=== PATIENT | female | born 1990 | race Caucasian/White ===

== ENCOUNTER → 2019-11-04 10:59 | Outpatient (BNVA) | payer MEDICAID, SELFPAY | PROVIDERS: Family Provider Family Medicine; PCP Family Medicine; Visit Provider Family Medicine | DX: Z34.91 Encounter for supervision of normal pregnancy, unspecified, first trimester (principal); F41.1 Generalized anxiety disorder; F32.9 Major depressive disorder, single episode, unspecified; H10.33 Unspecified acute conjunctivitis, bilateral | CPT/HCPCS: 81025 ==

== ENCOUNTER 2020-01-21 12:03 | Inpatient (IN) | payer MEDICAID, SELFPAY ==
[2020-01-21 12:04] VITALS: BP 129/85; PULSE 60; RESP 18; TEMP 36.8; O2SAT 100; BMI 31.7
--- NOTE | 2020-01-21 12:29 | PC.NURSE ---
Pt in paper scrubs, with sitter at doorway. Room devoid of all objects. Pt is calm and conversive.
[2020-01-21 12:31] LABS: Basophils # 0.1 10^3/uL (0.0-0.1); Basophils % 0.6 %; Eosinophils # 0.2 10^3/uL (0.0-0.8); Eosinophils % 2.7 %; Hematocrit 41.4 % (37.0-47.0); Hemoglobin 12.7 g/dL (11.5-15.3); Lymphocytes # 1.7 10^3/uL (0.8-4.8); Lymphocytes % 19.6 %; Mean Corpuscular HGB Conc 30.7 g/dL (30.0-36.0); Mean Corpuscular Hemoglobin 26.1 pg (28.0-34.0); Mean Corpuscular Volume 85.2 fL (81-99); Mean Platelet Volume 9.7 fL (7.4-10.4); Monocytes # 0.6 10^3/uL (0.2-0.9); Monocytes % 6.6 %; Neutrophils # 6.2 10^3/uL (1.8-7.7); Nucleated Red Blood Cells % 0 %; Platelet Count 387 10^3/cmm (130-400); Red Blood Count 4.86 10^6/uL (4.1-5.3); Red Cell Distribution Width 13.6 % (12.1-15.1); White Blood Count 8.8 10^3/uL (4.0-10.0)
--- NOTE | 2020-01-21 12:40 | W.ED.PSYCH ---
HPI - Psych General: Chief Complaint: Psychiatric Symptoms Stated Complaint: SI HALLUCINATIONS Time Seen by Provider: 01/21/20 12:05 Source: patient Mode of arrival: EMS Limitations: no limitations History of Present Illness: HPI Narrative: Patient is a 29-year-old female who presents to ED today from the [facility] along with a psychiatric affidavit for complaints of wanting to harm herself by banging her head on a wall as well as thoughts of wanting to harm her child. When asked if she feels like she may harm her 11 month old infant if released from the hospital, she responds yes . Reports auditory hallucinations of hearing voices telling her she's not good enough, she's not a good mother, she doens't deserve her son, etc. Associated symptoms: Reports auditory hallucinations, depression and homicidal ideation; Deny visual hallucinations or suicidal ideation Review of Systems Const: Denies: fever or chills Card: Denies: chest pain, palpitations, lightheadedness or syncope Resp: Denies: shortness of breath GI: Denies: abdominal pain, nausea, vomiting or diarrhea Skin/Breast: Denies: rash Neuro: Denies: headache Psych: Reports: anxiety, depression, auditory hallucinations and homicidal ideation; Denies: visual hallucinations or suicidal ideation [facility] ED PFSH: Social History Smoking and tobacco status: former smoker Quit status (tobacco): has quit using tobacco Year quit tobacco: 2019 Former quit date comment: 10/30/2019 Second hand smoke exposure: Yes Smoking risk assessment/counseling performed?: No Alcohol intake: never Desire information about alcohol rehabilitation?: No Counseling given: No Desire information about substance/drug rehabilitation?: No Counseling given: No Lives independently: No Household members: spouse and family Housing: House Marital status: Number of children: 1 service: No Current gender identity: Female Female Reproductive History: Date of last menstrual period: 01/21/20 Physical Exam Const: COMMON NORMALS: no apparent distress, average body habitus, oriented x3, no limitations, healthy appearing, alert and well nourished Resp: COMMON NORMALS: normal respiratory effort and clear to auscultation bilaterally AUSCULTATION: clear to auscultation bilaterally Cardio: COMMON NORMALS: regular rate and regular rhythm RATE: regular rate RHYTHM: regular rhythm Extremity: COMMON NORMALS: normal to inspection Neuro: COMMON NORMALS: oriented x3 SENSORIUM/ORIENTATION: Yes alert Skin: COMMON NORMALS: no rashes or lesions noted GENERAL SKIN EXAM: no rashes or lesions noted MDM - Psych MDM Narrative: Medical decision making narrative: Patient came for [facility] with an affidavit on her chart. I spoke to Dr. Schafer the psychiatrist on-call who agrees patient needs to be admitted however we do not have NPU beds currently. We can either board her in our ED until one becomes available or transfer her. On patient's blood work her test did come back positive. Patient tells me about a month ago she was told she was and thinks she was approximately 5 to 6 weeks because she had an ultrasound through her [facility] in [place] and was told it was too early to know if it was a viable . She stated shortly after she began bleeding much heavier than a normal menstrual cycle and believes she miscarried. Patient had not had any further bleeding until yesterday when she began spotting again. Her hCG today is 36. She is not having any abdominal pain or cramping. She will need to have this rechecked through her [facility]-states she actually had an appointment with them tomorrow but she will need to reschedule after she is discharged from a psychiatric unit. Lab Data: Labs: Lab Results 01/21/20 01/21/20 01/21/20 Range/Units 12:05 12:07 12:23 WBC 8.8 (4.0-10.0) 10^3/ uL RBC 4.86 (4.1-5.3) 10^6/u L Hgb 12.7 (11.5-15.3) g/dL Hct 41.4 (37.0-47.0) % MCV 85.2 (81-99) fL MCH 26.1 L (28.0-34.0) pg MCHC 30.7 (30.0-36.0) g/dL RDW 13.6 (12.1-15.1) % Plt Count 387 (130-400) 10^3/c mm MPV 9.7 (7.4-10.4) fL Neut % (Auto) 70.0 % Lymph % (Auto) 19.6 % [place] % (Auto) 6.6 % Eos % (Auto) 2.7 % Baso % (Auto) 0.6 % Neut # (Auto) 6.2 (1.8-7.7) 10^3/u L Lymph # (Auto) 1.7 (0.8-4.8) 10^3/u L [place] # (Auto) 0.6 (0.2-0.9) 10^3/u L Eos # (Auto) 0.2 (0.0-0.8) 10^3/u L Baso # (Auto) 0.1 (0.0-0.1) 10^3/u L Nucleated RBC % (a uto) 0 % Nucleated RBCs # 0.0 /100WBC Sodium (136-145) mmol/L Potassium (3.5-5.1) mmol/L Chloride (98-107) mmol/L Carbon Dioxide (22-29) mmol/L Anion Gap (5-19) BUN (6-20) mg/dL Creatinine (0.5-0.9) mg/dL GFR Calculation (90-130) mL/min Glucose (65-115) mg/dL Calculated Osmolal ity (285-295) mOsm/k g Calcium (8.5-10.5) mg/dL Total Bilirubin (0.15-1.2) mg/dL AST (0-32) U/L ALT (0-33) U/L Alkaline Phosphata se (35-105) IU/L Total Protein (6.6-8.7) g/dL Albumin (3.5-5.2) g/dL Globulin (1.3-4.6) g/dL TSH (0.27-4.20) uIU/ mL HCG, Qual (Negative) Ser , Kranthi i-Qnt mIU/mL Urine Color Yellow (Yellow) Urine Appearance Sl hazy (CLEAR) Urine pH 6 (5-7) Ur Specific Gravit y 1.010 (1.005-1.030) Urine Protein Neg (Negative) Urine Glucose (UA) Norm (Normal) Urine Ketones Negative (Negative) Urine Blood 3+ H (Negative) Urine Nitrate Negative (Negative) Urine Bilirubin Neg (NEGATIVE) Urine Urobilinogen Norm (Negative) mg/dL Ur Leukocyte Suzette ase Negative (Negative) Urine RBC 0-4 H (0-2) /hpf Urine WBC None (0-5) /hpf Ur Squamous Epith Cells 5-10 H (0-5) Urine Bacteria 1+ H (NONE) Salicylates (3-10) mg/dL Urine Opiates Scre en Negative (Negative) ng/mL Acetaminophen (10-30) ug/mL Ur Barbiturates Sc reen Negative (Negative) ng/mL Ur Phencyclidine S crn Negative (Negative) ng/mL Ur Amphetamines Sc reen Negative (Negative) ng/mL U Benzodiazepines Scrn Negative (Negative) ng/mL Urine Cocaine Scre en Negative (Negative) ng/mL U Marijuana (THC) Screen Negative (Negative) ng/mL Ethyl Alcohol (0-10) mg/dL Blood Type Rho(D) Type 01/21/20 01/21/20 01/21/20 Range/Units 12:23 12:23 12:23 WBC (4.0-10.0) 10^3/ uL RBC (4.1-5.3) 10^6/u L Hgb (11.5-15.3) g/dL Hct (37.0-47.0) % MCV (81-99) fL MCH (28.0-34.0) pg MCHC (30.0-36.0) g/dL RDW (12.1-15.1) % Plt Count (130-400) 10^3/c mm MPV (7.4-10.4) fL Neut % (Auto) % Lymph % (Auto) % [place] % (Auto) % Eos % (Auto) % Baso % (Auto) % Neut # (Auto) (1.8-7.7) 10^3/u L Lymph # (Auto) (0.8-4.8) 10^3/u L [place] # (Auto) (0.2-0.9) 10^3/u L Eos # (Auto) (0.0-0.8) 10^3/u L Baso # (Auto) (0.0-0.1) 10^3/u L Nucleated RBC % (a uto) % Nucleated RBCs # /100WBC Sodium 140 (136-145) mmol/L Potassium 4.7 (3.5-5.1) mmol/L Chloride 104 (98-107) mmol/L Carbon Dioxide 26 (22-29) mmol/L Anion Gap 14.7 (5-19) BUN 10 (6-20) mg/dL Creatinine 0.6 (0.5-0.9) mg/dL GFR Calculation 116.6 (90-130) mL/min Glucose 84 (65-115) mg/dL Calculated Osmolal ity 285 (285-295) mOsm/k g Calcium 10.0 (8.5-10.5) mg/dL Total Bilirubin 0.2 (0.15-1.2) mg/dL AST 18 (0-32) U/L ALT 19 (0-33) U/L Alkaline Phosphata se 95 (35-105) IU/L Total Protein 7.2 (6.6-8.7) g/dL Albumin 4.2 (3.5-5.2) g/dL Globulin 3.0 (1.3-4.6) g/dL TSH (0.27-4.20) uIU/ mL HCG, Qual Positive H (Negative) Ser , Kranthi i-Qnt 36.30 mIU/mL Urine Color (Yellow) Urine Appearance (CLEAR) Urine pH (5-7) Ur Specific Gravit y (1.005-1.030) Urine Protein (Negative) Urine Glucose (UA) (Normal) Urine Ketones (Negative) Urine Blood (Negative) Urine Nitrate (Negative) Urine Bilirubin (NEGATIVE) Urine Urobilinogen (Negative) mg/dL Ur Leukocyte Suzette ase (Negative) Urine RBC (0-2) /hpf Urine WBC (0-5) /hpf Ur Squamous Epith Cells (0-5) Urine Bacteria (NONE) Salicylates 0.6 L (3-10) mg/dL Urine Opiates Scre en (Negative) ng/mL Acetaminophen < 5.0 L (10-30) ug/mL Ur Barbiturates Sc reen (Negative) ng/mL Ur Phencyclidine S crn (Negative) ng/mL Ur Amphetamines Sc reen (Negative) ng/mL U Benzodiazepines Scrn (Negative) ng/mL Urine Cocaine Scre en (Negative) ng/mL U Marijuana (THC) Screen (Negative) ng/mL Ethyl Alcohol < 10 (0-10) mg/dL Blood Type Rho(D) Type 01/21/20 01/21/20 Range/Units 12:23 13:07 WBC (4.0-10.0) 10^3/ uL RBC (4.1-5.3) 10^6/u L Hgb (11.5-15.3) g/dL Hct (37.0-47.0) % MCV (81-99) fL MCH (28.0-34.0) pg MCHC (30.0-36.0) g/dL RDW (12.1-15.1) % Plt Count (130-400) 10^3/c mm MPV (7.4-10.4) fL Neut % (Auto) % Lymph % (Auto) % [place] % (Auto) % Eos % (Auto) % Baso % (Auto) % Neut # (Auto) (1.8-7.7) 10^3/u L Lymph # (Auto) (0.8-4.8) 10^3/u L [place] # (Auto) (0.2-0.9) 10^3/u L Eos # (Auto) (0.0-0.8) 10^3/u L Baso # (Auto) (0.0-0.1) 10^3/u L Nucleated RBC % (a uto) % Nucleated RBCs # /100WBC Sodium (136-145) mmol/L Potassium (3.5-5.1) mmol/L Chloride (98-107) mmol/L Carbon Dioxide (22-29) mmol/L Anion Gap (5-19) BUN (6-20) mg/dL Creatinine (0.5-0.9) mg/dL GFR Calculation (90-130) mL/min Glucose (65-115) mg/dL Calculated Osmolal ity (285-295) mOsm/k g Calcium (8.5-10.5) mg/dL Total Bilirubin (0.15-1.2) mg/dL AST (0-32) U/L ALT (0-33) U/L Alkaline Phosphata se (35-105) IU/L Total Protein (6.6-8.7) g/dL Albumin (3.5-5.2) g/dL Globulin (1.3-4.6) g/dL TSH 2.41 (0.27-4.20) uIU/ mL HCG, Qual (Negative) Ser , Kranthi i-Qnt mIU/mL Urine Color (Yellow) Urine Appearance (CLEAR) Urine pH (5-7) Ur Specific Gravit y (1.005-1.030) Urine Protein (Negative) Urine Glucose (UA) (Normal) Urine Ketones (Negative) Urine Blood (Negative) Urine Nitrate (Negative) Urine Bilirubin (NEGATIVE) Urine Urobilinogen (Negative) mg/dL Ur Leukocyte Suzette ase (Negative) Urine RBC (0-2) /hpf Urine WBC (0-5) /hpf Ur Squamous Epith Cells (0-5) Urine Bacteria (NONE) Salicylates (3-10) mg/dL Urine Opiates Scre en (Negative) ng/mL Acetaminophen (10-30) ug/mL Ur Barbiturates Sc reen (Negative) ng/mL Ur Phencyclidine S crn (Negative) ng/mL Ur Amphetamines Sc reen (Negative) ng/mL U Benzodiazepines Scrn (Negative) ng/mL Urine Cocaine Scre en (Negative) ng/mL U Marijuana (THC) Screen (Negative) ng/mL Ethyl Alcohol (0-10) mg/dL Blood Type O Positive Rho(D) Type Positive Discharge Plan Discharge Patient Disposition: Psych Hosp/Unit w Plan Readm Admit Provider: Rakan Cloud Clinical Impression: Homicidal thoughts, Suicidal ideation Depression Qualifiers: Depression Type: major depressive disorder Major depression recurrence: recurrent Active/Remission status: currently active Major depression episode severity: moderate Qualified Code(s): F33.1 - Major depressive disorder, recurrent, moderate Condition: Stable Discharge Date/Time: 01/21/20 23:32 Coding Level of Care Code ED Construction Economist for Rony Fwd Exam Detailed
[2020-01-21 12:44] LABS: Amphetamines Screen Urine Negative (Negative); Barbiturates Screen Urine Negative (Negative); Benzodiazepines Screen Urine Negative (Negative); Cocaine Screen Urine Negative (Negative); Opiate Screen Urine Negative (Negative); PCP Screen Urine Negative (Negative); THC Screen Urine Negative (Negative)
[2020-01-21 12:46] LABS: HCG, Serum Qual Positive (Negative)
[2020-01-21 12:49] LABS: Acetaminophen < 5.0 ug/mL (10-30); Alanine Aminotransferase 19 U/L (0-33); Albumin Level 4.2 g/dL (3.5-5.2); Alcohol Level < 10 mg/dL (0-10); Alkaline Phosphatase 95 IU/L (35-105); Anion Gap 14.7 (5-19); Aspartate Amino Transferase 18 U/L (0-32); Blood Urea Nitrogen 10 mg/dL (6-20); Carbon Dioxide 26 mmol/L (22-29); Chloride 104 mmol/L (98-107); Glomerular Filtration Rate 116.6 mL/min (90-130); Glucose 84 mg/dL (65-115); Osmolality Calculated 285 mOsm/kg (285-295); Potassium 4.7 mmol/L (3.5-5.1); Salicylate 0.6 mg/dL (3-10); Sodium 140 mmol/L (136-145); Total Bilirubin 0.2 mg/dL (0.15-1.2); Total Protein 7.2 g/dL (6.6-8.7)
--- NOTE | 2020-01-21 13:12 | PC.NURSE ---
Pt requesting food. Bag lunch taken to pt.
[2020-01-21] MEDS: acetaminophen 325 mg Tablet 650 MG PO (13:38)
--- NOTE | 2020-01-21 15:27 | ECG_ITS ---
Measurements Intervals [place] Rate: 62 P: 38 [place]: 120 QRS: 48 QRSD: 132 T: 53 QT: 436 QTc: 446 SINUS RHYTHM WITH SINUS ARRHYTHMIA INTRAVENTRICULAR CONDUCTION DELAY [130+ ms QRS DURATION] No previous ECG available for comparison Electronically Signed On 01-21-2020 18:22:14 CDT by Reymundo Torres M.D. [email or web address]
[2020-01-21 15:53] LABS: Thyroid Stimulating Hormone 2.41 uIU/mL (0.27-4.20)
[2020-01-21 16:49] VITALS: BP 112/64; PULSE 68; RESP 16; TEMP 36.8; O2SAT 99
--- NOTE | 2020-01-21 17:05 | W.ED.PSYCH ---
HPI - Psych General: Chief Complaint: Psychiatric Symptoms Stated Complaint: SI HALLUCINATIONS Time Seen by Provider: 01/21/20 12:05 Source: patient Mode of arrival: EMS History of Present Illness: Associated symptoms: Reports homicidal ideation and suicidal ideation Review of Systems General: Reports: 10 or more systems reviewed and unremarkable except in HPI and below Psych: Reports: suicidal ideation and homicidal ideation PFS ED PFSH: Social History Smoking and tobacco status: former smoker Quit status (tobacco): has quit using tobacco Year quit tobacco: 2019 Former quit date comment: 10/30/2019 Second hand smoke exposure: Yes Smoking risk assessment/counseling performed?: No Alcohol intake: never Desire information about alcohol rehabilitation?: No Counseling given: No Desire information about substance/drug rehabilitation?: No Counseling given: No Lives independently: No Household members: spouse and family Housing: House Marital status: Number of children: 1 service: No Current gender identity: Female Female Reproductive History: Date of last menstrual period: 01/21/20 Physical Exam Const: COMMON NORMALS: no apparent distress and oriented x3 GENERAL APPEARANCE: cooperative HENMT: COMMON NORMALS: normocephalic, external ears normal, EAC's normal, TM's normal bilaterally and external nose normal HEAD & SCALP: normal to inspection and normocephalic FACE & SINUS: normal facial exam NOSE: external nose normal GENERAL EAR: hearing not grossly impaired EXTERNAL EAR: Yes external ears normal EXTERNAL AUDITORY CANAL: EAC's normal TYMPANIC MEMBRANE: TM's normal bilaterally MOUTH: oral and palatal mucosa normal THROAT: posterior oropharynx normal Eye: COMMON NORMALS: PERRL and EOMs intact bilaterally PUPIL: Yes PERRL Neck/C-Spine: COMMON NORMALS: full ROM and no lymphadenopathy Lymph: LYMPHATIC: no lymphedema noted Chest: COMMONS NORMALS: inspection of chest normal and palpation of chest normal Resp: COMMON NORMALS: normal respiratory effort and clear to auscultation bilaterally AUSCULTATION: clear to auscultation bilaterally Cardio: COMMON NORMALS: regular rate and regular rhythm RATE: regular rate RHYTHM: regular rhythm GI: COMMON NORMALS: normal to inspection, nondistended, normoactive bowel sounds and non-tender : COMMON NORMALS: Yes no CVA tenderness BLADDER/KIDNEY EXAM: Yes no CVA tenderness Back/Pelvis: COMMON NORMALS: no CVA tenderness and thoracic and lumbar spine normal to inspection Extremity: COMMON NORMALS: normal to inspection GENERAL: No edema Neuro: COMMON NORMALS: oriented x3, moves all extremities and no focal motor deficits Psych: COMMON NORMALS: mental status grossly normal and cooperative Skin: COMMON NORMALS: no rashes or lesions noted GENERAL SKIN EXAM: no rashes or lesions noted MDM - Psych MDM Narrative: Medical decision making narrative: Patient comes in today for complaints of suicidal ideation and homicidal thoughts. Patient has been having some difficulty and made a statement that she would harm her child if she was to be sent back home. Differential diagnosis is major depressive disorder, psychosis, schizotypal disorder, schizophrenia. Laboratory values were insignificant. Patient did have a positive hCG test and a hCG level of 36. Ultrasound noted some endometrial thickening that could have been suggested as a retained product from a miscarriage or a molar type . Patient is aware of this abnormality and is presently seeing an VP [facility]ETIC and was supposed to see the VP GENETIC tomorrow. Due to concerns for the safety of patient self and her child she needs admission into the neuropsychiatric unit for further evaluation and treatment. Dr. Cloud has agreed to admission to neuropsychiatric unit. Consult for [facility] consult will be placed in the orders. Dr. Cloud was agreeable for this plan. Lab Data: Labs: Lab Results 01/21/20 01/21/20 01/21/20 Range/Units 12:05 12:07 12:23 WBC 8.8 (4.0-10.0) 10^3/ uL RBC 4.86 (4.1-5.3) 10^6/u L Hgb 12.7 (11.5-15.3) g/dL Hct 41.4 (37.0-47.0) % MCV 85.2 (81-99) fL MCH 26.1 L (28.0-34.0) pg MCHC 30.7 (30.0-36.0) g/dL RDW 13.6 (12.1-15.1) % Plt Count 387 (130-400) 10^3/c mm MPV 9.7 (7.4-10.4) fL Neut % (Auto) 70.0 % Lymph % (Auto) 19.6 % [place] % (Auto) 6.6 % Eos % (Auto) 2.7 % Baso % (Auto) 0.6 % Neut # (Auto) 6.2 (1.8-7.7) 10^3/u L Lymph # (Auto) 1.7 (0.8-4.8) 10^3/u L [place] # (Auto) 0.6 (0.2-0.9) 10^3/u L Eos # (Auto) 0.2 (0.0-0.8) 10^3/u L Baso # (Auto) 0.1 (0.0-0.1) 10^3/u L Nucleated RBC % (a uto) 0 % Nucleated RBCs # 0.0 /100WBC Sodium (136-145) mmol/L Potassium (3.5-5.1) mmol/L Chloride (98-107) mmol/L Carbon Dioxide (22-29) mmol/L Anion Gap (5-19) BUN (6-20) mg/dL Creatinine (0.5-0.9) mg/dL GFR Calculation (90-130) mL/min Glucose (65-115) mg/dL Calculated Osmolal ity (285-295) mOsm/k g Calcium (8.5-10.5) mg/dL Total Bilirubin (0.15-1.2) mg/dL AST (0-32) U/L ALT (0-33) U/L Alkaline Phosphata se (35-105) IU/L Total Protein (6.6-8.7) g/dL Albumin (3.5-5.2) g/dL Globulin (1.3-4.6) g/dL TSH (0.27-4.20) uIU/ mL HCG, Qual (Negative) Ser , Kranthi i-Qnt mIU/mL Urine Color Yellow (Yellow) Urine Appearance Sl hazy (CLEAR) Urine pH 6 (5-7) Ur Specific Gravit y 1.010 (1.005-1.030) Urine Protein Neg (Negative) Urine Glucose (UA) Norm (Normal) Urine Ketones Negative (Negative) Urine Blood 3+ H (Negative) Urine Nitrate Negative (Negative) Urine Bilirubin Neg (NEGATIVE) Urine Urobilinogen Norm (Negative) mg/dL Ur Leukocyte Suzette ase Negative (Negative) Urine RBC 0-4 H (0-2) /hpf Urine WBC None (0-5) /hpf Ur Squamous Epith Cells 5-10 H (0-5) Urine Bacteria 1+ H (NONE) Salicylates (3-10) mg/dL Urine Opiates Scre en Negative (Negative) ng/mL Acetaminophen (10-30) ug/mL Ur Barbiturates Sc reen Negative (Negative) ng/mL Ur Phencyclidine S crn Negative (Negative) ng/mL Ur Amphetamines Sc reen Negative (Negative) ng/mL U Benzodiazepines Scrn Negative (Negative) ng/mL Urine Cocaine Scre en Negative (Negative) ng/mL U Marijuana (THC) Screen Negative (Negative) ng/mL Ethyl Alcohol (0-10) mg/dL Blood Type Rho(D) Type 01/21/20 01/21/20 01/21/20 Range/Units 12:23 12:23 12:23 WBC (4.0-10.0) 10^3/ uL RBC (4.1-5.3) 10^6/u L Hgb (11.5-15.3) g/dL Hct (37.0-47.0) % MCV (81-99) fL MCH (28.0-34.0) pg MCHC (30.0-36.0) g/dL RDW (12.1-15.1) % Plt Count (130-400) 10^3/c mm MPV (7.4-10.4) fL Neut % (Auto) % Lymph % (Auto) % [place] % (Auto) % Eos % (Auto) % Baso % (Auto) % Neut # (Auto) (1.8-7.7) 10^3/u L Lymph # (Auto) (0.8-4.8) 10^3/u L [place] # (Auto) (0.2-0.9) 10^3/u L Eos # (Auto) (0.0-0.8) 10^3/u L Baso # (Auto) (0.0-0.1) 10^3/u L Nucleated RBC % (a uto) % Nucleated RBCs # /100WBC Sodium 140 (136-145) mmol/L Potassium 4.7 (3.5-5.1) mmol/L Chloride 104 (98-107) mmol/L Carbon Dioxide 26 (22-29) mmol/L Anion Gap 14.7 (5-19) BUN 10 (6-20) mg/dL Creatinine 0.6 (0.5-0.9) mg/dL GFR Calculation 116.6 (90-130) mL/min Glucose 84 (65-115) mg/dL Calculated Osmolal ity 285 (285-295) mOsm/k g Calcium 10.0 (8.5-10.5) mg/dL Total Bilirubin 0.2 (0.15-1.2) mg/dL AST 18 (0-32) U/L ALT 19 (0-33) U/L Alkaline Phosphata se 95 (35-105) IU/L Total Protein 7.2 (6.6-8.7) g/dL Albumin 4.2 (3.5-5.2) g/dL Globulin 3.0 (1.3-4.6) g/dL TSH (0.27-4.20) uIU/ mL HCG, Qual Positive H (Negative) Ser , Kranthi i-Qnt 36.30 mIU/mL Urine Color (Yellow) Urine Appearance (CLEAR) Urine pH (5-7) Ur Specific Gravit y (1.005-1.030) Urine Protein (Negative) Urine Glucose (UA) (Normal) Urine Ketones (Negative) Urine Blood (Negative) Urine Nitrate (Negative) Urine Bilirubin (NEGATIVE) Urine Urobilinogen (Negative) mg/dL Ur Leukocyte Suzette ase (Negative) Urine RBC (0-2) /hpf Urine WBC (0-5) /hpf Ur Squamous Epith Cells (0-5) Urine Bacteria (NONE) Salicylates 0.6 L (3-10) mg/dL Urine Opiates Scre en (Negative) ng/mL Acetaminophen < 5.0 L (10-30) ug/mL Ur Barbiturates Sc reen (Negative) ng/mL Ur Phencyclidine S crn (Negative) ng/mL Ur Amphetamines Sc reen (Negative) ng/mL U Benzodiazepines Scrn (Negative) ng/mL Urine Cocaine Scre en (Negative) ng/mL U Marijuana (THC) Screen (Negative) ng/mL Ethyl Alcohol < 10 (0-10) mg/dL Blood Type Rho(D) Type 01/21/20 01/21/20 Range/Units 12:23 13:07 WBC (4.0-10.0) 10^3/ uL RBC (4.1-5.3) 10^6/u L Hgb (11.5-15.3) g/dL Hct (37.0-47.0) % MCV (81-99) fL MCH (28.0-34.0) pg MCHC (30.0-36.0) g/dL RDW (12.1-15.1) % Plt Count (130-400) 10^3/c mm MPV (7.4-10.4) fL Neut % (Auto) % Lymph % (Auto) % [place] % (Auto) % Eos % (Auto) % Baso % (Auto) % Neut # (Auto) (1.8-7.7) 10^3/u L Lymph # (Auto) (0.8-4.8) 10^3/u L [place] # (Auto) (0.2-0.9) 10^3/u L Eos # (Auto) (0.0-0.8) 10^3/u L Baso # (Auto) (0.0-0.1) 10^3/u L Nucleated RBC % (a uto) % Nucleated RBCs # /100WBC Sodium (136-145) mmol/L Potassium (3.5-5.1) mmol/L Chloride (98-107) mmol/L Carbon Dioxide (22-29) mmol/L Anion Gap (5-19) BUN (6-20) mg/dL Creatinine (0.5-0.9) mg/dL GFR Calculation (90-130) mL/min Glucose (65-115) mg/dL Calculated Osmolal ity (285-295) mOsm/k g Calcium (8.5-10.5) mg/dL Total Bilirubin (0.15-1.2) mg/dL AST (0-32) U/L ALT (0-33) U/L Alkaline Phosphata se (35-105) IU/L Total Protein (6.6-8.7) g/dL Albumin (3.5-5.2) g/dL Globulin (1.3-4.6) g/dL TSH 2.41 (0.27-4.20) uIU/ mL HCG, Qual (Negative) Ser , Kranthi i-Qnt mIU/mL Urine Color (Yellow) Urine Appearance (CLEAR) Urine pH (5-7) Ur Specific Gravit y (1.005-1.030) Urine Protein (Negative) Urine Glucose (UA) (Normal) Urine Ketones (Negative) Urine Blood (Negative) Urine Nitrate (Negative) Urine Bilirubin (NEGATIVE) Urine Urobilinogen (Negative) mg/dL Ur Leukocyte Suzette ase (Negative) Urine RBC (0-2) /hpf Urine WBC (0-5) /hpf Ur Squamous Epith Cells (0-5) Urine Bacteria (NONE) Salicylates (3-10) mg/dL Urine Opiates Scre en (Negative) ng/mL Acetaminophen (10-30) ug/mL Ur Barbiturates Sc reen (Negative) ng/mL Ur Phencyclidine S crn (Negative) ng/mL Ur Amphetamines Sc reen (Negative) ng/mL U Benzodiazepines Scrn (Negative) ng/mL Urine Cocaine Scre en (Negative) ng/mL U Marijuana (THC) Screen (Negative) ng/mL Ethyl Alcohol (0-10) mg/dL Blood Type O Positive Rho(D) Type Positive Discharge Plan Discharge Patient Disposition: Psych Hosp/Unit w Plan Readm Clinical Impression: Homicidal thoughts, Suicidal ideation Depression Qualifiers: Depression Type: major depressive disorder Major depression recurrence: recurrent Active/Remission status: currently active Major depression episode severity: moderate Qualified Code(s): F33.1 - Major depressive disorder, recurrent, moderate Condition: Stable Discharge Date/Time: 01/21/20 23:32 Coding Level of Care Code ED Ict Security Specialist for Rony Stephens
--- NOTE | 2020-01-21 17:13 | PC.NURSE ---
Pt starting to C/O chest pain described as sharp and shooting. No cardiac history. EKG done showing sinus rhythm approx [address] deviation or ectopy noted. . dr. [place].
--- NOTE | 2020-01-21 17:28 | PC.NURSE ---
Food tray delivered to pt.
[2020-01-21 17:36] LABS: Add Urine Microscopic? YES; Bilirubin Urine Neg (NEGATIVE); Blood Urine 3+ (Negative); Glucose Urine UA Norm (Normal); Ketones Urine Negative (Negative); Leukocyte Esterase Urine Negative (Negative); Nitrate Urine Negative (Negative); Protein Urine Neg (Negative); Urine Appearance SL Hazy (CLEAR); Urine Color Yellow (Yellow); Urobilinogen Urine Norm (Negative); pH Urine 6 (5-7)
[2020-01-21 17:43] LABS: Add Urine Culture? No; Bacteria Urine 1+; RBC Urine 0-4 /hpf (0-2)
[2020-01-21] MEDS: lidocaine 2% viscous 15 ML, aluminum-mag hydrox-simethicon 30 ML, sucralfate oral liq 1 GM PO (20:15)
[2020-01-21] MEDS: LORazepam 1 mg Tablet PO (20:20)
--- NOTE | 2020-01-21 20:23 | PC.NURSE ---
Per [facility] Clinical Sup, no female beds available
[2020-01-21] MEDS: ketorolac 30 mg/mL INJ IM (20:25)
[2020-01-21] MEDS: tobramycin-dexametha Op Susp 5 mL Btl 2 DROP EYE-BOTH (20:30)
--- NOTE | 2020-01-21 21:06 | US_ITS ---
WS: [id number] TRANSABDOMINAL PELVIC AND TRANSVAGINAL PELVIC ULTRASOUND HISTORY: elevated hcg, COMPARISON: None available. Uterus: 6.8 cm x 5.2 cm x 3.3 cm. Normal size anteverted uterus. No fibroid or mass. Endometrium: 1.6 cm. Markedly thickened abnormal endometrium. Cystic and complex cystic material arnie g the endometrium with thickening of the endometrial lining. There is mild increased peripheral vascu larity around the endometrium. Right ovary: 3.0 cm x 2.8 cm x 3.0 cm. Large cyst associated with the RIGHT ovary measuring 4.7 x 3.7 x 5.3 cm. There are additional smaller cysts associated with the RIGHT ovary. Normal vascularity wit hin the normal-appearing ovarian tissue. Left ovary: 3.0 cm x 2.6 cm x 3.0 cm. Normal size ovary. No cysts. No free fluid. US/US pelvic with transvaginal IMPRESSION: 1. Abnormal endometrium. With history of recent miscarriage could be retained products of the conception, molar or new abnormal intrauterine gestat ion. Ectopic is not excluded with a positive beta hCG. 2. RIGHT ovarian cyst. Large RIGHT ovarian cyst measures 4.7 x 3.7 x 5.3 cm. S uggest follow-up transvaginal imaging in 6-8 weeks to ensure resolution. Size o f the cyst places patient at increased risk for torsion.
--- NOTE | 2020-01-21 21:17 | PC.NURSE ---
Report given to Alisia Meyer @ [facility]. Waiting for ultrasound results for call back
[2020-01-21 22:28] VITALS: BP 106/78; PULSE 75; RESP 12; TEMP 36.9; O2SAT 97
[2020-01-21 23:25] VITALS: BP 116/71; PULSE 70; RESP 18; TEMP 36.8; O2SAT 100
[2020-01-21 23:29] VITALS: BP 116/71; PULSE 70; RESP 14; TEMP 36.8; O2SAT 98
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
[2020-01-22 06:00] VITALS: BP 112/71; PULSE 65; RESP 16; TEMP 36.6; O2SAT 99
[2020-01-22] MEDS: fluoxetine 20 mg Capsule PO ×2 (08:30→11:56)
[2020-01-22] MEDS: acetaminophen 325 mg Tablet 650 MG PO ×2 (10:19→20:44)
[2020-01-22] MEDS: hyDROXYzine 25 mg Capsule 50 MG PO (11:46)
[2020-01-22 14:00] VITALS: BP 122/77; PULSE 93; RESP 18; TEMP 36.8; O2SAT 98
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
[2020-01-22 20:26] VITALS: BP 112/74; PULSE 77; RESP 18; TEMP 36.9; O2SAT 98
--- NOTE | 2020-01-22 20:44 | PC.NURSE ---
Tylenol and Trazodone given at this time.
[2020-01-23 06:00] VITALS: BP 111/70; PULSE 61; RESP 17; TEMP 36.8; O2SAT 97
--- NOTE | 2020-01-23 07:55 | PM.PN ---
Subjective Subjective: Interval history: 29 Year female with positive hCG. She's not sure exactly when her last menstrual period occurred as she claimed that her body likes to play tricks on her. Refers she stated spotting for 2 days. Denies morning sickness, denies pelvic pain. Vitals/I&O/Wt Last Vital Signs Temp 98.3 F 01/23/20 06:00 Pulse 61 01/23/20 06:00 Resp 17 01/23/20 06:00 BP 111/70 01/23/20 06:00 Pulse Ox 97 01/23/20 06:00 Weight last 48 hrs Weight 83.915 kg Physical Exam Const: COMMON NORMALS: no apparent distress, average body habitus and oriented x3 GENERAL APPEARANCE: cooperative and well kempt HENMT: COMMON NORMALS: normocephalic and head/scalp atraumatic HEAD & SCALP: normocephalic and atraumatic Neck/C-Spine: COMMON NORMALS: full ROM Chest: COMMONS NORMALS: inspection of chest normal Resp: COMMON NORMALS: normal respiratory effort Cardio: COMMON NORMALS: regular rate and regular rhythm RATE: regular rate RHYTHM: regular rhythm GI: INSPECTION: Yes normal to inspection Neuro: COMMON NORMALS: oriented x3 Psych: APPEARANCE: Yes well kempt Data : 01/21/20 12:23 01/21/20 12:23 Other Labs: Laboratory Tests 01/21/20 12:23 Ser , Semi-Qnt 36.30 US: My impression: threatened AB versus new IUP Radiologist's impression: [address] [address] Ultrasound Report Signed Patient: Lynne Singh #: [id number] : 1990Acct#:[id number] Age/Sex: Date: [birth year] [facility] 124[facility]: Rakan Cloud MD Ordering Provider/Ordering MD: Stuart Motta NP Date of Service: 01/21/20 Procedure(s): US pelvic with transvaginal Accession Number(s): [id number] Report Number: [id number] WS: [id number] TRANSABDOMINAL PELVIC AND TRANSVAGINAL PELVIC ULTRASOUND HISTORY: elevated hcg, COMPARISON: None available. Uterus: 6.8 cm x 5.2 cm x 3.3 cm. Normal size anteverted uterus. No fibroid or mass. Endometrium: 1.6 cm. Markedly thickened abnormal endometrium. Cystic and complex cystic material along the endometrium with thickening of the endometrial lining. There is mild increased peripheral vascularity around the endometrium. Right ovary: 3.0 cm x 2.8 cm x 3.0 cm. Large cyst associated with the RIGHT ovary measuring 4.7 x 3.7 x 5.3 cm. There are additional smaller cysts associated with the RIGHT ovary. Normal vascularity within the normal-appearing ovarian tissue. Left ovary: 3.0 cm x 2.6 cm x 3.0 cm. Normal size ovary. No cysts. No free fluid. US/US pelvic with transvaginal IMPRESSION: 1. Abnormal endometrium. With history of recent miscarriage could be retained products of the conception, molar or new abnormal intrauterine gestation. Ectopic is not excluded with a positive beta hCG. 2. RIGHT ovarian cyst. Large RIGHT ovarian cyst measures 4.7 x 3.7 x 5.3 cm. Suggest follow-up transvaginal imaging in 6-8 weeks to ensure resolution. Size of the cyst places patient at increased risk for torsion. Dictated By:Nettie Fernandez DO Signed By:Nettie Fernandez DOSigned Date/Time:01/22/20 0756 DD/ 0752 A&P Assessment and plan (1) Threatened miscarriage in early : 29-year-old female with threatened AB with history of early miscarriage. weight in the emergency room where she was found to have quantitative hCG of 36 units. Ordered today and no other quantitative hCG to determine if it is increasing or decreasing. She refers to 6 weeks ago she was possibly having a miscarriage and didn't experienced any bleeding episodes after that initial evaluation. Ultrasound performed emergency room suggest possible new versus incomplete AB. The trainee quantitative hCG will help determine if this is a new viable or an incomplete AB. Her follow-up quantitative hCG decreased 34 mIU. 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
[2020-01-23] MEDS: fluoxetine 20 mg Capsule 40 MG PO (08:47)
[2020-01-23] MEDS: acetaminophen 325 mg Tablet 650 MG PO ×2 (08:47→18:18)
[2020-01-23] MEDS: hyDROXYzine 25 mg Capsule 50 MG PO ×2 (11:34→18:33)
[2020-01-23 14:00] VITALS: BP 108/71; PULSE 82; RESP 18; TEMP 37.3; O2SAT 99
--- NOTE | 2020-01-23 14:10 | P.PN_ITS ---
Subjective NPU Subjective: Interval history: Lynne presents today reporting that she is still feeling unstable. She doesn't feel like the Prozac is bad she just feels like her mind is still kind of racing and hard to manage. We discussed the risks benefits and alternatives of initiating the Abilify and discontinuing the Rexulti when she leaves and she understood and agreed to proceed as is documented in his note. Mental Status Exam MSE Comments: This is an obese, white female, with adequate dress, grooming, and eye contact. Very red eyes. No abnormal movements except for mild psychomotor retardation. Cooperative with exam in no acute distress. Speech was decreased rate and volume. Mood described as still racing thoughts; affect slightly activated. Thought process, organized. Thought content: patient denied any suicidal or homicidal ideation, there were no delusions reported or noted, patient denied any auditory or visual hallucinations. Attention, concentration, and memory appear intact but were not formally tested. She is alert and oriented times three. Insight and judgment were limited, and intellectual capacity seems limited. Vitals/I&O/Wt Last Vital Signs Temp 99.2 F 01/23/20 14:00 Pulse 82 01/23/20 14:00 Resp 18 01/23/20 14:00 BP 108/71 01/23/20 14:00 Pulse Ox 99 01/23/20 14:00 Home Medications brexpiprazole 0.5 mg tablet 0.5 mg PO DAILY 30 Days #30 tab 01/05/20 [Rx Confirmed 01/21/20] fluoxetine 20 mg capsule 20 mg PO DAILY 30 Days #30 cap 01/05/20 [Rx Confirmed 01/21/20] PNV cmb#95-ferrous fumarate-FA [] 1 tab PO DAILY 01/21/20 [History Confirmed 01/21/20] buspirone See Rx Instructions .ROUTE .COMPLEX 01/21/20 [History Confirmed 0 01/21/20] cyclobenzaprine 5 mg PO TID PRN 01/21/20 [History Confirmed 01/21/20] Active Medications Acetaminophen (Tylenol) 650 mg PO Q4H PRN PRN Reason: MILD PAIN Last Admin: 01/23/20 08:47 Dose: 650 mg Documented by: Aripiprazole (Abilify) 10 mg PO DAILY RADHA Benztropine Mesylate (Cogentin) 1 mg PO BID PRN PRN Reason: Mild Extrapyramidal symptoms Camphor/Menthol/Phenol (Blistex) 1 applic TOPICAL Q1H PRN PRN Reason: DRYNESS Cyclobenzaprine HCl (Flexeril) 5 mg PO TID PRN PRN Reason: Spasms Diphenhydramine HCl (Benadryl) 50 mg IM ONCE PRN PRN Reason: Severe Extrapyramidal Symptoms Diphenhydramine HCl (Benadryl) 50 mg IM Q4H PRN PRN Reason: Severe Aggression Fluoxetine HCl (Prozac) 40 mg PO DAILY RADHA Last Admin: 01/23/20 08:47 Dose: 40 mg Documented by: Haloperidol (Haldol) 5 mg PO Q4H PRN PRN Reason: AGITATION Haloperidol Lactate (Haldol Inj) 5 mg IM Q4H PRN PRN Reason: Severe Aggression Hydroxyzine Pamoate (Vistaril) 50 mg PO Q6H PRN PRN Reason: ANXIETY Last Admin: 01/23/20 11:34 Dose: 50 mg Documented by: Loperamide HCl (Imodium Capsule) 2 mg PO Q6H PRN PRN Reason: DIARRHEA Lorazepam (Ativan) 2 mg IM Q4H PRN PRN Reason: Severe Aggression Nicotine (Nicoderm 21 Mg Patch) 1 patch TRANSDERMA DAILY PRN PRN Reason: NICOTINE WITHDRAWAL Nicotine Polacrilex (Nicorette) 2 mg BUCCAL Q2H PRN PRN Reason: NICOTINE WITHDRAWAL Non-Formulary Medication (Brexpiprazole) 0.5 mg PO DAILY [facility] Non-Formulary Medication (Pnv Cmb#95-Ferrous Fumarate-Fa []) 1 tab PO DAILY [facility] Olanzapine (Zyprexa Zydis) 5 mg PO Q4H PRN PRN Reason: Agitation/Psychosis Ondansetron HCl (Zofran) 4 mg PO Q6H PRN PRN Reason: NAUSEA AND VOMITING Trazodone HCl (Desyrel) 50 mg PO BEDTIME PRN PRN Reason: SLEEP Data NPU : 01/21/20 12:23 01/21/20 12:23 A&P Assessment and plan (1) Homicidal thoughts: This is a 29 year old, white female, with history of depression without treatment reported throughout her life along with 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 Continue current medication except: Abilify 10 mg by mouth every morning. Encourage individual, group, and milieu therapy. Continue q 15-minute checks for safety. OB consult was done awaiting medical consult for possible pinkeye treatment and infectious disease considerations to avoid spreading We will make sure that there are some supports in place prior to discharge to assist with exploration of parenting classes or things like that, that might help in the challenges of being a young mother. Status: Acute Code(s): R45.850 - Homicidal ideations (2) Depression: Status: Acute Qualifiers: Active/Remission status: currently active Depression Type: major depressive disorder Major depression episode severity: moderate Major depr ession recurrence: recurrent Qualified Code(s): F33.1 - Major depressive disorder, recurrent, moderate Code(s): F32.9 - Major depressive disorder, single episode, unspecified (3) Suicidal ideation: Status: Acute Code(s): R45.851 - Suicidal ideations (4) Thoughts of self harm: Status: Acute Code(s): R45.89 - Other symptoms and signs involving emotional state (5) Auditory hallucinations: Status: Acute Code(s): R44.0 - Auditory hallucinations (6) Depression: Status: Acute Qualifiers: Depression Type: major depressive disorder Major depression recurrence: recurrent Active/Remission status: currently active Major depression episode severity: severe Psychotic features: with psychotic features Qualified Code(s): F33.3 - Major depressive disorder, recurrent, severe with psychotic symptoms Code(s): F32.9 - Major depressive disorder, single episode, unspecified (7) Generalized anxiety disorder: Status: Acute Code(s): F41.1 - Generalized anxiety disorder (8) Intermittent explosive disorder: Status: Acute Code(s): F63.81 - Intermittent explosive disorder Involuntary Hold Information 96 Hour Hold: 96 Hour Involuntary Admission: No Attestations NPU Medical Necessity Statement*: Inpatient hospitalization is medically necessary and the clinically appropriate intervention at this time. We will monitor her medications and titrate to effect. Likely length of stay 3-5 days. 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 [facility] Fwd Diagnoses Homicidal thoughts R45.850 Depression F33.1 Active/Remission status: currently active Depression Type: major depressive disorder Major depression episode severity: moderate Major depression recurrence: recurrent Suicidal ideation R45.851 Thoughts of self harm R45.89 Auditory hallucinations R44.0 Depression F33.3 Depression Type: major depressive disorder Major depression recurrence: recurrent Active/Remission status: currently active Major depression episode severity: severe Psychotic features: with psychotic features Generalized anxiety disorder F41.1 Intermittent explosive disorder F63.81
[2020-01-23] MEDS: ARIPiprazole 10 mg Tablet PO (14:47)
--- NOTE | 2020-01-23 18:33 | PC.NURSE ---
Addendum entered by Karolina Gao LPN 01/23/20 19:06: MEDICATION EFFECTIVE. PATIENT IS LYING IN BED RESTING, RESPIRATIONS EVEN AND UNLABORED. Original Note: PRN VISTARIL VISTARIL 50MG PO PER PT C/O ANXIETY. WILL CONTINUE TO MONITOR FOR MEDICATION EFFECTIVENESS.
--- NOTE | 2020-01-23 18:39 | PM.CONSULT ---
Providers/Reason For Consult Consulting Physican/Specialty*: Pita Bhatia MD, Hospitalist Reason for Consult*: Bilateral conjunctivitis Requesting Physcian: Dr. Rakan Cloud Attending Physician: Rakan Cloud MD Primary Care Provider: Avril Cloud MD History of Present Illness History of Present Illness Lynne Singh is a 29 year old female with PMHx of Depression, Anxiety, Obesity; initially presented on 01/20 from PCP office for evaluation of suicidal ideation and auditory hallucinations. Patient was admitted to [facility] where she has been receiving psychiatric care. She has a documented history of recurrent bacterial conjunctivitis and during this hospital stay has been noted to have matting of her eyelashes and drainage hence hospitalist consult for further evaluation. Patient seen in [facility] day room, wears prescription glasses, noted a dry drainage of bilateral eyelashes, denies fever/chills, photophobia, blurry vision. Confirms that she has an allergy to amoxicillin and clindamycin. States that she has to use a warm paper towel to clean her eyes every morning as they typically closed shut upon her awakening. Review of Systems Const: Denies: fever or chills Eyes: Reports: eye discharge and eye redness; Denies: change in vision, blurry vision, photophobia or eye discomfort ENMT: Reports: ear pain (left) Card: Reports: other (left sided chest wall pain) Resp: Denies: shortness of breath : Reports: other (spotting) Psych: Reports: anxiety Meds/Allergies Home Medications and Allergies Home Medications Medication Instructions Recorded Confirmed Type brexpiprazole 0.5 mg tablet 0.5 mg PO DAILY 30 Days #30 tab 01/05/20 01/21/20 Rx fluoxetine 20 mg capsule 20 mg PO DAILY 30 Days #30 cap 01/05/20 01/21/20 Rx PNV cmb#95-ferrous fumarate-FA 1 tab PO DAILY 01/21/20 01/21/20 History [] buspirone See Rx Instructions .ROUTE .COMPLEX 01/21/20 01/21/20 History cyclobenzaprine 5 mg PO TID PRN 01/21/20 01/21/20 History Allergies Allergy/AdvReac Type Severity Reaction Status Date / Time amoxicillin Allergy Severe causes Verified 01/21/20 10:10 really bad migraines clindamycin Allergy ALGY-Swell Verified 01/21/20 12:10 Lip/Tongue/Throat Current Medications Current Medications Generic Name Dose Route Start Last Admin Trade Name Freq PRN Reason Stop Dose Admin Acetaminophen 650 mg 01/21/20 23:25 01/23/20 18:18 Tylenol PO 650 mg Q4H PRN Administration MILD PAIN Aripiprazole 10 mg 01/23/20 14:15 01/23/20 14:47 Abilify PO 10 mg DAILY RADHA Administration Fluoxetine HCl 40 mg 01/23/20 09:00 01/23/20 08:47 Prozac PO 40 mg DAILY RADHA Administration Hydroxyzine Pamoate 50 mg 01/21/20 23:25 01/23/20 18:33 Vistaril PO 50 mg Q6H PRN Administration ANXIETY PFSH Acute PFSH: Medical History Acute bacterial conjunctivitis of both eyes Chronic, recurrent infections. Depression Generalized anxiety disorder Hx LEEP (loop electrosurgical excision procedure), cervix, Staph skin infection Surgical History Hx of dilation and curettage Family History Father Melanoma Social History Smoking and tobacco status: former smoker Quit status (tobacco): has quit using tobacco Year quit tobacco: 2019 Former quit date comment: 10/30/2019 Second hand smoke exposure: Yes Smoking risk assessment/counseling performed?: No Alcohol intake: never Desire information about alcohol rehabilitation?: No Counseling given: No Desire information about substance/drug rehabilitation?: No Counseling given: No Lives independently: No Household members: spouse and family Housing: House Marital status: Number of children: 1 service: No Current gender identity: Female Female Reproductive History: Date of last menstrual period: 01/22/20 Vitals/I&O/Wt Last Vital Signs Temp 99.2 F 01/23/20 14:00 Pulse 82 01/23/20 14:00 Resp 18 01/23/20 14:00 BP 108/71 01/23/20 14:00 Pulse Ox 99 01/23/20 14:00 Physical Exam Const: COMMON NORMALS: no apparent distress and oriented x3 GENERAL APPEARANCE: cooperative and comfortable ORIENTATION/CONSCIOUSNESS: Yes awake HENMT: COMMON NORMALS: normocephalic, head/scalp atraumatic, hearing grossly normal bilaterally and moist oral mucous membranes HEAD & SCALP: normocephalic and atraumatic Eye: COMMON NORMALS: PERRL, EOMs intact bilaterally and conjunctivae normal CONJUNCTIVA: Yes conjunctivae normal PUPIL: Yes PERRL OTHER: -dried yellowish drainage on eyelashes bilaterally Neck/C-Spine: COMMON NORMALS: full ROM GENERAL: Yes normal visual inspection and Yes trachea midline Chest: COMMONS NORMALS: inspection of chest normal CHEST: Yes tenderness (left chest wall ) Resp: COMMON NORMALS: normal respiratory effort, no retractions, no use of accessory muscles and clear to auscultation bilaterally EFFORT & INSPECTION: Yes able to speak in complete sentences, Yes symmetric chest movement and No tachypneic AUSCULTATION: clear to auscultation bilaterally Cardio: COMMON NORMALS: regular rate, regular rhythm, S1 normal heart sound, S2 normal heart sound and no murmurs RATE: regular rate RHYTHM: regular rhythm HEART SOUNDS: S1 normal and S2 normal GI: COMMON NORMALS: normal to inspection, nondistended, normoactive bowel sounds, soft to palpation and non-tender PALPATION: Yes soft Extremity: COMMON NORMALS: normal to inspection, full ROM, no clubbing, cyanosis or edema and no pedal edema Neuro: COMMON NORMALS: oriented x3, moves all extremities, no focal motor deficits, no sensory deficits noted and gait normal Psych: COMMON NORMALS: mental status grossly normal, thought process normal, cooperative, affect normal and speech normal SPEECH: Yes normal speech THOUGHT PROCESS: normal thought process Skin: COMMON NORMALS: no rashes or lesions noted, no jaundice, no petechiae and no mottling GENERAL SKIN EXAM: no rashes or lesions noted A&P Assessment and plan (1) Acute bacterial conjunctivitis of both eyes: -Noted clinical evidence of acute bacterial conjunctivitis bilaterally -We will start on treatment with trimethoprim-polymyxin ointment -warm compresses, one for each eye as needed Status: Acute Code(s): H10.33 - Unspecified acute conjunctivitis, bilateral (2) Suicidal ideation: -per Psychiatry Status: Acute Code(s): R45.851 - Suicidal ideations (3) Depression: Status: Acute Qualifiers: Active/Remission status: currently active Depression Type: major depressive disorder Major depression episode severity: moderate Major depression recurrence: recurrent Qualified Code(s): F33.1 - Major depressive disorder, recurrent, moderate Code(s): F32.9 - Major depressive disorder, single episode, unspecified (4) Homicidal thoughts: Status: Acute Code(s): R45.850 - Homicidal ideations (5) Threatened miscarriage in early : -noted to have positive beta-hCG, 36->34; continue to trend quantitative hCG -vp security consulted -pelvic US noted with abnormal endometrium and right ovarian cyst -Clinically has mild spotting Status: Acute Code(s): O20.0 - Threatened Additional A&P Information -Obesity: BMI-32 kg/m2 -Former smoker -regular diet as tolerated -Dispo: per psych -Code status: FULL code -Thank you for this consult, will continue to follow along with you. Consult Attestations Medical Necessity Statement: Patient requires hospitalization for continued inpatient psychiatric care. Time Spent in Patient Care: 16 - 35 minutes (>than 50% of time spent in counselling and/or direct pt care on unit). Coding Level of Care Code Acute Food And Nutrition Services Assistant for [facility] Fwd Diagnoses Acute bacterial conjunctivitis of both eyes H10.33 Suicidal ideation R45.851 Depression F33.1 Active/Remission status: currently active Depression Type: major depressive disorder Major depression episode severity: moderate Major depression recurrence: recurrent Homicidal thoughts R45.850 Threatened miscarriage in early O20.0
[2020-01-23 20:22] VITALS: BP 127/74; PULSE 81; RESP 19; TEMP 37; O2SAT 100
[2020-01-23] MEDS: cyclobenzaprine 10 mg Tablet 5 MG PO (20:51)
--- NOTE | 2020-01-23 20:51 | PC.NURSE ---
HS meds polytrim eye gtts and per pt request, PRN meds trazodone and flexeril given at this time.
[2020-01-23] MEDS: trazodone 50 mg Tablet PO (20:52)
[2020-01-23] MEDS: polymyxin-trimethoprim Op Soln 10 mL Btl 1 DROP EYE-BOTH (20:52)
[2020-01-24 06:00] VITALS: BP 112/76; PULSE 97; RESP 19; TEMP 36.1; O2SAT 97
[2020-01-24] MEDS: ARIPiprazole 10 mg Tablet PO (08:56)
[2020-01-24] MEDS: fluoxetine 20 mg Capsule 40 MG PO (08:56)
[2020-01-24] MEDS: polymyxin-trimethoprim Op Soln 10 mL Btl 1 DROP EYE-BOTH ×4 (09:07→21:30)
[2020-01-24] MEDS: acetaminophen 325 mg Tablet 650 MG PO ×3 (09:07→21:46)
[2020-01-24] MEDS: hyDROXYzine 25 mg Capsule 50 MG PO ×2 (09:41→18:12)
[2020-01-24] MEDS: ondansetron 4 MG Tablet PO (10:11)
--- NOTE | 2020-01-24 10:13 | P.PN_ITS ---
Subjective Subjective: Interval history: Patient seen and examined, encountered in her room, waiting to speak with Dr. Cloud. Seems less anxious today. Eye exam is unchanged. Medications: Reviewed: Yes Medication Review Details: Active Medications Generic Name Dose Route Start Last Admin Trade Name Freq PRN Reason Stop Dose Admin Acetaminophen 650 mg 01/21/20 23:25 01/24/20 09:07 Tylenol PO 650 mg Q4H PRN Administration MILD PAIN Aripiprazole 10 mg 01/23/20 14:15 01/24/20 08:56 Abilify PO 10 mg DAILY RADHA Administration Benztropine Mesyla te 1 mg 01/21/20 23:25 Cogentin PO BID PRN Mild Extrapyramid al symptoms Camphor/Menthol/Ph enol 1 applic 01/21/20 23:25 Blistex TOPICAL Q1H PRN DRYNESS Cyclobenzaprine HC l 5 mg 01/22/20 05:31 01/23/20 20:51 Flexeril PO 5 mg TID PRN Administration Spasms Diphenhydramine HC l 50 mg 01/21/20 23:25 Benadryl IM ONCE PRN Severe Extrapyram idal Symptoms Diphenhydramine HC l 50 mg 01/21/20 23:25 Benadryl IM Q4H PRN Severe Aggression Fluoxetine HCl 40 mg 01/23/20 09:00 01/24/20 08:56 Prozac PO 40 mg DAILY RADHA Administration Haloperidol 5 mg 01/21/20 23:25 Haldol PO Q4H PRN AGITATION Haloperidol Lactat e 5 mg 01/21/20 23:25 Haldol Inj IM Q4H PRN Severe Aggression Hydroxyzine Pamoat e 50 mg 01/21/20 23:25 01/24/20 09:41 Vistaril PO 50 mg Q6H PRN Administration ANXIETY Loperamide HCl 2 mg 01/21/20 23:25 Imodium Capsule PO Q6H PRN DIARRHEA Lorazepam 2 mg 01/21/20 23:25 Ativan IM Q4H PRN Severe Aggression Nicotine 1 patch 01/21/20 23:25 Nicoderm 21 Mg P atch TRANSDERMA DAILY PRN NICOTINE WITHDRAW AL Nicotine Polacrile x 2 mg 01/21/20 23:25 Nicorette BUCCAL Q2H PRN NICOTINE WITHDRAW AL Non-Formulary Medi cation 0.5 mg 01/22/20 09:00 Brexpiprazole PO DAILY RADHA Non-Formulary Medi cation 1 tab 01/22/20 09:00 Pnv Cmb#95-Mathieu us Fumarate-Fa [Pr enatal] PO DAILY RADHA Olanzapine 5 mg 01/21/20 23:25 Zyprexa Zydis PO Q4H PRN Agitation/Psychos is Ondansetron HCl 4 mg 01/21/20 23:25 01/24/20 10:11 Zofran PO 4 mg Q6H PRN Administration NAUSEA AND VOMITI NG Polymyxin/Trimetho prim Sulfate 1 drop 01/23/20 21:00 01/24/20 09:07 Polytrim EYE-BOTH 1 drop QID RADHA Administration Trazodone HCl 50 mg 01/21/20 23:25 01/23/20 20:52 Desyrel PO 50 mg BEDTIME PRN Administration SLEEP amoxicillin Allergy (Severe, Verified 01/21/20 10:10) causes really bad migraines clindamycin Allergy (Verified 01/21/20 12:10) ALGY-Swell Lip/Tongue/Throat Vitals/I&O/Wt Last Vital Signs Temp 97 F L 01/24/20 06:00 Pulse 97 01/24/20 06:00 Resp 19 H 01/24/20 06:00 BP 112/76 01/24/20 06:00 Pulse Ox 97 01/24/20 06:00 Physical Exam Const: COMMON NORMALS: no apparent distress and oriented x3 GENERAL APPEARANCE: cooperative and comfortable ORIENTATION/CONSCIOUSNESS: Yes awake HENMT: COMMON NORMALS: normocephalic, head/scalp atraumatic, hearing grossly normal bilaterally and moist oral mucous membranes HEAD & SCALP: normocephalic and atraumatic Eye: COMMON NORMALS: PERRL, EOMs intact bilaterally and conjunctivae normal CONJUNCTIVA: Yes conjunctivae normal PUPIL: Yes PERRL OTHER: -dried yellowish drainage on eyelashes bilaterally Neck/C-Spine: COMMON NORMALS: full ROM GENERAL: Yes normal visual inspection and Yes trachea midline Chest: COMMONS NORMALS: inspection of chest normal CHEST: Yes tenderness (left chest wall ) Resp: COMMON NORMALS: normal respiratory effort, no retractions, no use of accessory muscles and clear to auscultation bilaterally EFFORT & INSPECTION: Yes able to speak in complete sentences, Yes symmetric chest movement and No tachypneic AUSCULTATION: clear to auscultation bilaterally Cardio: COMMON NORMALS: regular rate, regular rhythm, S1 normal heart sound, S2 normal heart sound and no murmurs RATE: regular rate RHYTHM: regular rhythm HEART SOUNDS: S1 normal and S2 normal GI: COMMON NORMALS: normal to inspection, nondistended, normoactive bowel sounds, soft to palpation and non-tender PALPATION: Yes soft Extremity: COMMON NORMALS: normal to inspection, full ROM, no clubbing, cyanosis or edema and no pedal edema Neuro: COMMON NORMALS: oriented x3, moves all extremities, no focal motor deficits, no sensory deficits noted and gait normal Psych: COMMON NORMALS: mental status grossly normal, thought process normal, cooperative, affect normal and speech normal SPEECH: Yes normal speech THOUGHT PROCESS: normal thought process Skin: COMMON NORMALS: no rashes or lesions noted, no jaundice, no petechiae and no mottling GENERAL SKIN EXAM: no rashes or lesions noted Data : 01/21/20 12:23 01/21/20 12:23 A&P Assessment and plan (1) Acute bacterial conjunctivitis of both eyes: -Noted clinical evidence of acute bacterial conjunctivitis bilaterally -started on treatment with trimethoprim-polymyxin ointment -warm compresses, one for each eye as needed Status: Acute Code(s): H10.33 - Unspecified acute conjunctivitis, bilateral (2) Suicidal ideation: -per Psychiatry Status: Acute Code(s): R45.851 - Suicidal ideations (3) Depression: Status: Acute Qualifiers: Active/Remission status: currently active Depression Type: major depressive disorder Major depression episode severity: moderate Major depression recurrence: recurrent Qualified Code(s): F33.1 - Major depressive disorder, recurrent, moderate Code(s): F32.9 - Major depressive disorder, single episode, unspecified (4) Homicidal thoughts: Status: Acute Code(s): R45.850 - Homicidal ideations (5) Threatened miscarriage in early : -noted to have positive beta-hCG, 36->34; continue to trend quantitative hCG -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 Time Spent in Patient Care: less than 15 minutes (>than 50% of time spent in counselling and/or direct pt care on unit) . Coding Level of Care Code Acute Pitching Coach for [facility] Fwd Exam Comprehensive Diagnoses Acute bacterial conjunctivitis of both eyes H10.33 Suicidal ideation R45.851 Depression F33.1 Active/Remission status: currently active Depression Type: major depressive disorder Major depression episode severity: moderate Major depression recurrence: recurrent Homicidal thoughts R45.850 Threatened miscarriage in early O20.0
--- NOTE | 2020-01-24 11:47 | PM.NPN ---
Subjective [facility] Subjective: Interval history: The patient presents today reporting that she is feeling a bit better and for the first time started taking about the possibility of discharge, when previously she was very concerned about whether or not it was safe for her to be home. She did have a chance to see the hospitalist about her conjunctivitis, and secondary to it?s presentation there is some bacterial coverage with eye drops. We discussed her medications which she feels are working really well, and she reports she is eating and sleeping better. Mental Status Exam MSE Comments: This is an obese, white female, with adequate dress, and limited grooming and eye contact. With very pink conjunctiva and poor dentition. No abnormal movements, except for mild but improving psychomotor retardation. Cooperative with exam in no acute distress. Speech was less decreased rate and volume. Mood described as better; affect congruent. Thought process, organized. Thought content: patient denied any suicidal or homicidal ideation, there were no delusions reported or noted, patient denied any auditory or visual hallucinations. Attention, concentration, and memory appeared intact but were not formally tested. She is alert and oriented times three. Insight and judgment are limited but improving. Vitals/I&O/Wt Last Vital Signs Temp 98.6 F 01/23/20 20:22 Pulse 81 01/23/20 20:22 Resp 19 H 01/23/20 20:22 BP 127/74 01/23/20 20:22 Pulse Ox 100 01/23/20 20:22 Home Medications brexpiprazole 0.5 mg tablet 0.5 mg PO DAILY 30 Days #30 tab 01/05/20 [Rx Confirmed 01/21/20] fluoxetine 20 mg capsule 20 mg PO DAILY 30 Days #30 cap 01/05/20 [Rx Confirmed 01/21/20] PNV cmb#95-ferrous fumarate-FA [] 1 tab PO DAILY 01/21/20 [History Confirmed 01/21/20] buspirone See Rx Instructions .ROUTE .COMPLEX 01/21/20 [History Confirmed 01/21/20] cyclobenzaprine 5 mg PO TID PRN 01/21/20 [History Confirmed 01/21/20] Active Medications Acetaminophen (Tylenol) 650 mg PO Q4H PRN PRN Reason: MILD PAIN Last Admin: 01/23/20 18:18 Dose: 650 mg Documented by: Aripiprazole (Abilify) 10 mg PO DAILY RADHA Last Admin: 01/23/20 14:47 Dose: 10 mg Documented by: Benztropine Mesylate (Cogentin) 1 mg PO BID PRN PRN Reason: Mild Extrapyramidal symptoms Camphor/Menthol/Phenol (Blistex) 1 applic TOPICAL Q1H PRN PRN Reason: DRYNESS Cyclobenzaprine HCl (Flexeril) 5 mg PO TID PRN PRN Reason: Spasms Last Admin: 01/23/20 20:51 Dose: 5 mg Documented by: Diphenhydramine HCl (Benadryl) 50 mg IM ONCE PRN PRN Reason: Severe Extrapyramidal Symptoms Diphenhydramine HCl (Benadryl) 50 mg IM Q4H PRN PRN Reason: Severe Aggression Fluoxetine HCl (Prozac) 40 mg PO DAILY [facility] Last Admin: 01/23/20 08:47 Dose: 40 mg Documented by: Haloperidol (Haldol) 5 mg PO Q4H PRN PRN Reason: AGITATION Haloperidol Lactate (Haldol Inj) 5 mg IM Q4H PRN PRN Reason: Severe Aggression Hydroxyzine Pamoate (Vistaril) 50 mg PO Q6H PRN PRN Reason: ANXIETY Last Admin: 01/23/20 18:33 Dose: 50 mg Documented by: Loperamide HCl (Imodium Capsule) 2 mg PO Q6H PRN PRN Reason: DIARRHEA Lorazepam (Ativan) 2 mg IM Q4H PRN PRN Reason: Severe Aggression Nicotine (Nicoderm 21 Mg Patch) 1 patch TRANSDERMA DAILY PRN PRN Reason: NICOTINE WITHDRAWAL Nicotine Polacrilex (Nicorette) 2 mg BUCCAL Q2H PRN PRN Reason: NICOTINE WITHDRAWAL Non-Formulary Medication (Brexpiprazole) 0.5 mg PO DAILY [facility] Non-Formulary Medication (Pnv Cmb#95-Ferrous Fumarate-Fa []) 1 tab PO DAILY [facility] Olanzapine (Zyprexa Zydis) 5 mg PO Q4H PRN PRN Reason: Agitation/Psychosis Ondansetron HCl (Zofran) 4 mg PO Q6H PRN PRN Reason: NAUSEA AND VOMITING Polymyxin/Trimethoprim Sulfate (Polytrim) 1 drop EYE-BOTH QID [facility] Last Admin: 01/23/20 20:52 Dose: 1 drop Documented by: Trazodone HCl (Desyrel) 50 mg PO BEDTIME PRN PRN Reason: SLEEP Last Admin: 01/23/20 20:52 Dose: 50 mg Documented by: Data [facility] : 01/21/20 12:23 01/21/20 12:23 A&P Assessment and plan (1) Intermittent explosive disorder: This is a 29 year old, white female, with history of depression without treatment reported throughout her life along with 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 Continue current medication except: Encourage individual, group, and milieu therapy. Continue q 15-minute checks for safety. We will make sure that there are some supports in place prior to discharge to assist with exploration of parenting classes or things like that, that might help in the challenges of being a young mother. Status: Acute Code(s): F63.81 - Intermittent explosive disorder (2) Homicidal thoughts: Status: Acute Code(s): R45.850 - Homicidal ideations (3) Depression: Status: Acute Qualifiers: Active/Remission status: currently active Depression Type: major depressive disorder Major depression episode severity: moderate Major depression recurrence: recurrent Qualified Code(s): F33.1 - Major depressive disorder, recurrent, moderate Code(s): F32.9 - Major depressive disorder, single episode, unspecified (4) Suicidal ideation: Status: Acute Code(s): R45.851 - Suicidal ideations (5) Auditory hallucinations: Status: Acute Code(s): R44.0 - Auditory hallucinations (6) Depression: Status: Acute Qualifiers: Depression Type: major depressive disorder Major depression recurrence: recurrent Active/Remission status: currently active Major depression episode severity: severe Psychotic features: with psychotic features Qualified Code(s): F33.3 - Major depressive disorder, recurrent, severe with psychotic symptoms Code(s): F32.9 - Major depressive disorder, single episode, unspecified (7) Generalized anxiety disorder: Status: Acute Code(s): F41.1 - Generalized anxiety disorder (8) Acute bacterial conjunctivitis of both eyes: Status: Acute Code(s): H10.33 - Unspecified acute conjunctivitis, bilateral Involuntary Hold Information 96 Hour Hold: 96 Hour Involuntary Admission: No Attestations [facility] Medical Necessity Statement*: Inpatient hospitalization is medically necessary and the clinically appropriate intervention at this time. We will monitor her medications and titrate to effect. Likely length of stay 2-4 days. Coding Level of Care Code Acute Supervisor Toy Parts Former for [facility] Fwd Diagnoses Intermittent explosive disorder F63.81 Homicidal thoughts R45.850 Depression F33.1 Active/Remission status: currently active Depression Type: major depressive disorder Major depression episode severity: moderate Major depression recurrence: recurrent Suicidal ideation R45.851 Auditory hallucinations R44.0 Depression F33.3 Depression Type: major depressive disorder Major depression recurrence: recurrent Active/Remission status: currently active Major depression episode severity: severe Psychotic features: with psychotic features Generalized anxiety disorder F41.1 Acute bacterial conjunctivitis of both eyes H10.33
[2020-01-24] MEDS: cyclobenzaprine 10 mg Tablet 5 MG PO ×2 (13:26→21:47)
[2020-01-24 14:00] VITALS: BP 107/73; PULSE 84; RESP 18
[2020-01-24] MEDS: trazodone 50 mg Tablet PO (21:43)
[2020-01-24 21:56] VITALS: BP 107/63; PULSE 70; RESP 18; TEMP 36.6; O2SAT 97
[2020-01-25 06:00] VITALS: BP 130/81; PULSE 74; RESP 19; TEMP 36.9; O2SAT 969; BMI 31.7
[2020-01-25] MEDS: hyDROXYzine 25 mg Capsule 50 MG PO ×2 (08:57→14:31)
[2020-01-25] MEDS: ARIPiprazole 10 mg Tablet PO (08:58)
[2020-01-25] MEDS: folic acid 1 mg Tablet PO (08:58)
[2020-01-25] MEDS: fluoxetine 20 mg Capsule 40 MG PO (08:58)
[2020-01-25] MEDS: polymyxin-trimethoprim Op Soln 10 mL Btl 1 DROP EYE-BOTH ×4 (08:59→21:01)
--- NOTE | 2020-01-25 09:08 | PM.PN ---
Subjective Subjective: Interval history: Afebrile, no acute overnight events. Patient seen and examined in the day room, no complaints, eye exam improved with less matting of the eyelashes and diminished redness. Denies any changes in her vision. Updated Dr. Cloud. Medications: Reviewed: Yes Medication Review Details: Active Medications Generic Name Dose Route Start Last Admin Trade Name Freq PRN Reason Stop Dose Admin Acetaminophen 650 mg 01/21/20 23:25 01/24/20 21:46 Tylenol PO 650 mg Q4H PRN Administration MILD PAIN Aripiprazole 10 mg 01/23/20 14:15 01/25/20 08:58 Abilify PO 10 mg DAILY RADHA Administration Benztropine Mesyla te 1 mg 01/21/20 23:25 Cogentin PO BID PRN Mild Extrapyramid al symptoms Camphor/Menthol/Ph enol 1 applic 01/21/20 23:25 Blistex TOPICAL Q1H PRN DRYNESS Cyclobenzaprine HC l 5 mg 01/22/20 05:31 01/24/20 21:47 Flexeril PO 5 mg TID PRN Administration Spasms Diphenhydramine HC l 50 mg 01/21/20 23:25 Benadryl IM ONCE PRN Severe Extrapyram idal Symptoms Diphenhydramine HC l 50 mg 01/21/20 23:25 Benadryl IM Q4H PRN Severe Aggression Fluoxetine HCl 40 mg 01/23/20 09:00 01/25/20 08:58 Prozac PO 40 mg DAILY RADHA Administration Folic Acid 1 mg 01/25/20 09:00 01/25/20 08:58 Folic Acid PO 1 mg DAILY RADHA Administration Haloperidol 5 mg 01/21/20 23:25 Haldol PO Q4H PRN AGITATION Haloperidol Lactat e 5 mg 01/21/20 23:25 Haldol Inj IM Q4H PRN Severe Aggression Hydroxyzine Pamoat e 50 mg 01/21/20 23:25 01/25/20 08:57 Vistaril PO 50 mg Q6H PRN Administration ANXIETY Loperamide HCl 2 mg 01/21/20 23:25 Imodium Capsule PO Q6H PRN DIARRHEA Lorazepam 2 mg 01/21/20 23:25 Ativan IM Q4H PRN Severe Aggression Nicotine 1 patch 01/21/20 23:25 Nicoderm 21 Mg P atch TRANSDERMA DAILY PRN NICOTINE WITHDRAW AL Nicotine Polacrile x 2 mg 01/21/20 23:25 Nicorette BUCCAL Q2H PRN NICOTINE WITHDRAW AL Non-Formulary Medi cation 0.5 mg 01/22/20 09:00 Brexpiprazole PO DAILY RADHA Non-Formulary Medi cation 1 tab 01/22/20 09:00 Pnv Cmb#95-Mathieu us Fumarate-Fa [Pr enatal] PO DAILY RADHA Olanzapine 5 mg 01/21/20 23:25 Zyprexa Zydis PO Q4H PRN Agitation/Psychos is Ondansetron HCl 4 mg 01/21/20 23:25 01/24/20 10:11 Zofran PO 4 mg Q6H PRN Administration NAUSEA AND VOMITI NG Polymyxin/Trimetho prim Sulfate 1 drop 01/23/20 21:00 01/25/20 08:59 Polytrim EYE-BOTH 1 drop QID RADHA Administration amoxicillin Allergy (Severe, Verified 01/21/20 10:10) causes really bad migraines clindamycin Allergy (Verified 01/21/20 12:10) ALGY-Swell Lip/Tongue/Throat Vitals/I&O/Wt Last Vital Signs Temp 98.5 F 01/25/20 06:00 Pulse 74 01/25/20 06:00 Resp 19 H 01/25/20 06:00 BP 130/81 01/25/20 06:00 Pulse Ox 969 H 01/25/20 06:00 Weight last 48 hrs Weight 83.915 kg Physical Exam Const: COMMON NORMALS: no apparent distress and oriented x3 GENERAL APPEARANCE: cooperative and comfortable ORIENTATION/CONSCIOUSNESS: Yes awake HENMT: COMMON NORMALS: normocephalic, head/scalp atraumatic, hearing grossly normal bilaterally and moist oral mucous membranes HEAD & SCALP: normocephalic and atraumatic Eye: COMMON NORMALS: PERRL, EOMs intact bilaterally and conjunctivae normal EYELID: eyelid abnormal (bilateral lower eyelids-redness) CONJUNCTIVA: Yes conjunctivae normal PUPIL: Yes PERRL OTHER: -dried yellowish drainage on eyelashes bilaterally (less) Neck/C-Spine: COMMON NORMALS: full ROM GENERAL: Yes normal visual inspection and Yes trachea midline Chest: COMMONS NORMALS: inspection of chest normal Resp: COMMON NORMALS: normal respiratory effort, no retractions, no use of accessory muscles and clear to auscultation bilaterally EFFORT & INSPECTION: Yes able to speak in complete sentences, Yes symmetric chest movement and No tachypneic AUSCULTATION: clear to auscultation bilaterally Cardio: COMMON NORMALS: regular rate, regular rhythm, S1 normal heart sound, S2 normal heart sound and no murmurs RATE: regular rate RHYTHM: regular rhythm HEART SOUNDS: S1 normal and S2 normal GI: COMMON NORMALS: normal to inspection, nondistended, normoactive bowel sounds, soft to palpation and non-tender PALPATION: Yes soft Extremity: COMMON NORMALS: normal to inspection, full ROM, no clubbing, cyanosis or edema and no pedal edema Neuro: COMMON NORMALS: oriented x3, moves all extremities, no focal motor deficits, no sensory deficits noted and gait normal Psych: COMMON NORMALS: mental status grossly normal, thought process normal, cooperative, affect normal and speech normal SPEECH: Yes normal speech THOUGHT PROCESS: normal thought process Skin: COMMON NORMALS: no rashes or lesions noted, no jaundice, no petechiae and no mottling GENERAL SKIN EXAM: no rashes or lesions noted Data : 01/21/20 12:23 01/21/20 12:23 A&P Assessment and plan (1) Acute bacterial conjunctivitis of both eyes: -Noted clinical evidence of acute bacterial conjunctivitis bilaterally -started on treatment with trimethoprim-polymyxin ointment x 7 days (day 3) -warm compresses, one for each eye as needed Status: Acute Code(s): H10.33 - Unspecified acute conjunctivitis, bilateral (2) Suicidal ideation: -per Psychiatry Status: Acute Code(s): R45.851 - Suicidal ideations (3) Depression: Status: Acute Qualifiers: Active/Remission status: currently active Depression Type: major depressive disorder Major depression episode severity: moderate Major depression recurrence: recurrent Qualified Code(s): F33.1 - Major depressive disorder, recurrent, moderate Code(s): F32.9 - Major depressive disorder, single episode, unspecified (4) Homicidal thoughts: Status: Acute Code(s): R45.850 - Homicidal ideations (5) Threatened miscarriage in early : -noted to have positive beta-hCG, 36->34; continue to trend quantitative hCG -enrollment management manager consulted -pelvic US noted with abnormal endometrium and right ovarian cyst -Clinically has mild spotting Status: Acute Code(s): O20.0 - Threatened Additional A&P Information -Obesity: BMI-32 kg/m2 -Former smoker -regular diet as tolerated -Dispo: per psych -Code status: FULL code -will sign off, please call with questions. Attestations Medical Necessity Statement*: Patient requires hospitalization for inpatient psychiatric care. Time Spent in Patient Care: less than 15 minutes (>than 50% of time spent in counselling and/or direct pt care on unit). Coding Level of Care Code Acute Fire Technology Instructor for [facility] Fwd Exam Comprehensive Diagnoses Acute bacterial conjunctivitis of both eyes H10.33 Suicidal ideation R45.851 Depression F33.1 Active/Remission status: currently active Depression Type: major depressive disorder Major depression episode severity: moderate Major depression recurrence: recurrent Homicidal thoughts R45.850 Threatened miscarriage in early O20.0
[2020-01-25] MEDS: cyclobenzaprine 10 mg Tablet 5 MG PO ×3 (09:56→21:00)
--- NOTE | 2020-01-25 10:10 | P.PN_ITS ---
Subjective NPU Subjective: Interval history: The patient presents today reporting that she feels like she is getting much better. We talked about her child, as well as her presentation with thoughts to harm herself, and she reports that, as of today, she is not having any thoughts to harm her child or herself. And the anxiety about concerns about her doing that have greatly improved. We discussed continuing the medication as it stands, as well as the risks, benefits, and alternatives of considering a discharge in the next 48 hours; she understood and agreed to proceed as is documented in this note. \ Mental Status Exam MSE Comments: This is an obese, white female, with adequate dress, and improved grooming and eye contact. No abnormal movements. Cooperative with exam in no acute distress. Speech was normal rate and volume. Mood described as much better; affect congruent. Thought process, organized. Thought content: patient denied any suicidal or homicidal ideation, there were no delusions reported or noted, patient denied any auditory or visual hallucinations. Attention, concentration, and memory appeared intact but were not formally tested. She is alert and oriented times three. Insight and judgment are limited but improving. Vitals/I&O/Wt Last Vital Signs Temp 98.1 F 01/25/20 21:09 Pulse 87 01/25/20 21:09 Resp 16 01/25/20 21:09 BP 117/75 01/25/20 21:09 Pulse Ox 99 01/25/20 21:09 Weight last 48 hrs Weight 83.915 kg Home Medications brexpiprazole 0.5 mg tablet 0.5 mg PO DAILY 30 Days #30 tab 01/05/20 [Rx Confirmed 01/21/20] fluoxetine 20 mg capsule 20 mg PO DAILY 30 Days #30 cap 01/05/20 [Rx Confirmed 01/21/20] PNV cmb#95-ferrous fumarate-FA [] 1 tab PO DAILY 01/21/20 [History Confirmed 01/21/20] buspirone See Rx Instructions .ROUTE .COMPLEX 01/21/20 [History Confirmed 01/21/20] cyclobenzaprine 5 mg PO TID PRN 01/21/20 [History Confirmed 01/21/20] Active Medications Acetaminophen (Tylenol) 650 mg PO Q4H PRN PRN Reason: MILD PAIN Last Admin: 01/25/20 11:45 Dose: 650 mg Documented by: Aripiprazole (Abicarlos) 10 mg PO DAILY [facility] Last Admin: 01/25/20 08:58 Dose: 10 mg Documented by: Benztropine Mesylate (Cogentin) 1 mg PO BID PRN PRN Reason: Mild Extrapyramidal symptoms Camphor/Menthol/Phenol (Blistex) 1 applic TOPICAL Q1H PRN PRN Reason: DRYNESS Cyclobenzaprine HCl (Flexeril) 5 mg PO TID PRN PRN Reason: Spasms Last Admin: 01/25/20 21:00 Dose: 5 mg Documented by: Diphenhydramine HCl (Benadryl) 50 mg IM ONCE PRN PRN Reason: Severe Extrapyramidal Symptoms Diphenhydramine HCl (Benadryl) 50 mg IM Q4H PRN PRN Reason: Severe Aggression Fluoxetine HCl (Prozac) 40 mg PO DAILY [facility] Last Admin: 01/25/20 08:58 Dose: 40 mg Documented by: Folic Acid (Folic Acid) 1 mg PO DAILY [facility] Last Admin: 01/25/20 08:58 Dose: 1 mg Documented by: Haloperidol (Haldol) 5 mg PO Q4H PRN PRN Reason: AGITATION Haloperidol Lactate (Haldol Inj) 5 mg IM Q4H PRN PRN Reason: Severe Aggression Hydroxyzine Pamoate (Vistaril) 50 mg PO Q6H PRN PRN Reason: ANXIETY Last Admin: 01/25/20 14:31 Dose: 50 mg Documented by: Loperamide HCl (Imodium Capsule) 2 mg PO Q6H PRN PRN Reason: DIARRHEA Lorazepam (Ativan) 2 mg IM Q4H PRN PRN Reason: Severe Aggression Nicotine (Nicoderm 21 Mg Patch) 1 patch TRANSDERMA DAILY PRN PRN Reason: NICOTINE WITHDRAWAL Nicotine Polacrilex (Nicorette) 2 mg BUCCAL Q2H PRN PRN Reason: NICOTINE WITHDRAWAL Non-Formulary Medication (Brexpiprazole) 0.5 mg PO DAILY [facility] Non-Formulary Medication (Pnv Cmb#95-Ferrous Fumarate-Fa []) 1 tab PO DAILY [facility] Olanzapine (Zyprexa Zydis) 5 mg PO Q4H PRN PRN Reason: Agitation/Psychosis Last Admin: 01/25/20 21:00 Dose: 5 mg Documented by: Ondansetron HCl (Zofran) 4 mg PO Q6H PRN PRN Reason: NAUSEA AND VOMITING Last Admin: 01/24/20 10:11 Dose: 4 mg Documented by: Polymyxin/Trimethoprim Sulfate (Polytrim) 1 drop EYE-BOTH QID RADHA Last Admin: 01/25/20 21:01 Dose: 1 drop Documented by: Data NPU : 01/21/20 12:23 01/21/20 12:23 A&P Assessment and plan (1) Intermittent explosive disorder: This is a 29 year old, white female, with history of depression without treatment reported throughout her life along with 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 Continue current medication except: Encourage individual, group, and milieu therapy. Continue q 15-minute checks for safety. We will make sure that there are some supports in place prior to discharge to assist with exploration of parenting classes or things like that, that might h elp in the challenges of being a young mother. Status: Acute Code(s): F63.81 - Intermittent explosive disorder (2) Depression: Status: Acute Qualifiers: Active/Remission status: currently active Depression Type: major depressive disorder Major depression episode severity: moderate Major depression recurrence: recurrent Qualified Code(s): F33.1 - Major depressive disorder, recurrent, moderate Code(s): F32.9 - Major depressive disorder, single episode, unspecified (3) Auditory hallucinations: Status: Acute Code(s): R44.0 - Auditory hallucinations (4) Acute bacterial conjunctivitis of both eyes: Status: Acute Code(s): H10.33 - Unspecified acute conjunctivitis, bilateral (5) Generalized anxiety disorder: Status: Acute Code(s): F41.1 - Generalized anxiety disorder Involuntary Hold Information 96 Hour Hold: 96 Hour Involuntary Admission: No Attestations NPU Medical Necessity Statement*: Inpatient hospitalization is medically necessary and the clinically appropriate intervention at this time. We will monitor her medications and titrate to effect. Likely length of stay 1-3 days. Coding Level of Care Code Acute [employer] for [facility] Diagnoses Intermittent explosive disorder F63.81 Depression F33.1 Active/Remission status: currently active Depression Type: major depressive disorder Major depression episode severity: moderate Major depression recurrence: recurrent Auditory hallucinations R44.0 Acute bacterial conjunctivitis of both eyes H10.33 Generalized anxiety disorder F41.1
[2020-01-25] MEDS: acetaminophen 325 mg Tablet 650 MG PO (11:45)
[2020-01-25 12:12] LABS: HCG Quantitative 25.43 mIU/mL
[2020-01-25 14:00] VITALS: BP 109/97; PULSE 78; RESP 17
[2020-01-25] MEDS: OLANZapine ODT 5 MG TABLET PO ×2 (17:46→21:00)
--- NOTE | 2020-01-25 21:03 | PC.NURSE ---
HS EYE DROPS AND PRN FLEXERIL AND ZYPREXA GIVEN AT THIS TIME.
[2020-01-25 21:09] VITALS: BP 117/75; PULSE 87; RESP 16; TEMP 36.7; O2SAT 99
[2020-01-26 05:14] VITALS: BP 113/74; PULSE 68; RESP 17; TEMP 36.6; O2SAT 97
[2020-01-26] MEDS: fluoxetine 20 mg Capsule 40 MG PO (08:58)
[2020-01-26] MEDS: folic acid 1 mg Tablet PO (08:58)
[2020-01-26] MEDS: hyDROXYzine 25 mg Capsule 50 MG PO (08:58)
[2020-01-26] MEDS: ARIPiprazole 10 mg Tablet PO (08:58)
--- NOTE | 2020-01-26 08:58 | PC.NURSE ---
Addendum entered by Karolina Gao LPN 01/26/20 09:45: MEDICATION EFFECTIVE. PATIENT IS SITTING IN GROUP PARTICIPATING. Original Note: PRN VISTARIL VISTARIL 50MG PO PER PT C/O ANXIETY. WILL CONTINUE TO MONITOR FOR MEDICATION EFFECTIVENESS.
[2020-01-26] MEDS: polymyxin-trimethoprim Op Soln 10 mL Btl 1 DROP EYE-BOTH ×2 (08:59→15:04)
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
[2020-01-26] MEDS: acetaminophen 325 mg Tablet 650 MG PO (13:42)
[2020-01-26 14:18] VITALS: BP 113/74; PULSE 68; RESP 17; TEMP 36.6; O2SAT 97
== END 2020-01-26 16:03 | disposition home or self-care (01) | DRG 885 ==
LOC: ER 22:13 → NP 22:48
PROVIDERS: Obstetrics & Gynecology; Physician Assistant; Admitting Provider Psychiatry & Neurology Psychiatry; Emergency Provider Nurse Practitioner Family; Family Provider Family Medicine; PCP Family Medicine; Visit Provider Psychiatry & Neurology Psychiatry
DX: F33.1 Major depressive disorder, recurrent, moderate (principal); R44.0 Auditory hallucinations; R45.851 Suicidal ideations; F63.81 Intermittent explosive disorder; H10.33 Unspecified acute conjunctivitis, bilateral; F41.1 Generalized anxiety disorder; R45.850 Homicidal ideations; E66.9 Obesity, unspecified; Z87.891 Personal history of nicotine dependence; Z68.31 Body mass index [BMI] 31.0-31.9, adult
CPT/HCPCS: 12345; 36415; 76830; 76856; 80053; 80306; 80307; 81001; 84443; 84702; 84703; 85025; 86900; 93005; 96372; 99284; J1885; Q0162

== ENCOUNTER → 2020-01-28 08:20 | Outpatient (BNVA) | payer MEDICAID, SELFPAY | PROVIDERS: Family Provider Family Medicine; PCP Family Medicine; Referring Provider Obstetrics & Gynecology; Visit Provider Obstetrics & Gynecology | DX: O20.0 Threatened abortion (principal) | CPT/HCPCS: 84702 ==

== ENCOUNTER → 2020-02-12 08:47 | Outpatient (BNVA) | payer MEDICAID, SELFPAY | PROVIDERS: Family Provider Family Medicine; PCP Family Medicine; Visit Provider Psychiatry & Neurology Psychiatry | DX: F31.60 Bipolar disorder, current episode mixed, unspecified (principal) | CPT/HCPCS: 99205 ==

== ENCOUNTER → 2020-02-19 10:03 | Outpatient (BNVA) | payer MEDICAID, SELFPAY | PROVIDERS: Family Provider Family Medicine; PCP Family Medicine; Visit Provider Family Medicine | DX: F32.9 Major depressive disorder, single episode, unspecified (principal); K21.9 Gastro-esophageal reflux disease without esophagitis; M25.559 Pain in unspecified hip; F41.1 Generalized anxiety disorder; O20.0 Threatened abortion; L08.9 Local infection of the skin and subcutaneous tissue, unspecified; Z32.00 Encounter for pregnancy test, result unknown | CPT/HCPCS: 84702 ==

== ENCOUNTER 2020-04-03 21:24 | Inpatient (IN) | payer MEDICAID, SELFPAY ==
[2020-04-03 21:26] VITALS: BP 117/68; PULSE 67; RESP 18; TEMP 36.6; O2SAT 99; BMI 34.7
--- NOTE | 2020-04-03 21:29 | ED_ITS ---
HPI - Psych General: Chief Complaint: Psychiatric Symptoms Stated Complaint: SI Time Seen by Provider: 04/03/20 21:27 History of Present Illness: HPI Narrative: Lynne is a 29-year-old female who comes in complaining of hallucinations. She states that they are causing her enough stress and distress that she is having thoughts about wanting to hurt herself. The patient will not share her plan as to how she will do this but states that she is getting to the point she feels she needs to come into the hospital to get help. The patient is very withdrawn and not very forthcoming with other information. Review of Systems General: Reports: ROS unobtainable due to medical condition PFSH ED PFSH: Medical History Acute bacterial conjunctivitis of both eyes Chronic, recurrent infections. Depression Generalized anxiety disorder GERD (gastroesophageal reflux disease) Hip pain Hx LEEP (loop electrosurgical excision procedure), cervix, Staph skin infection Surgical History Hx of dilation and curettage Family History Father Melanoma Social History Smoking and tobacco status: former smoker Quit status (tobacco): has quit using tobacco Year quit tobacco: 2019 Former quit date comment: 10/30/2019 Second hand smoke exposure: Yes Smoking risk assessment/counseling performed?: No Alcohol intake: never Desire information about alcohol rehabilitation?: No Counseling given: No Desire information about substance/drug rehabilitation?: No Counseling given: No Lives independently: No Household members: spouse and family Housing: House Marital status: Number of children: 1 service: No Current gender identity: Female Female Reproductive History: Date of last menstrual period: 01/22/20 Physical Exam Const: COMMON NORMALS: no acute distress, patient oriented x3, no limitations, healthy appearing and well nourished GENERAL APPEARANCE: cooperative, well kempt and well developed HENMT: COMMON NORMALS: normocephalic, atraumatic, external ears normal, EAC's normal and Normal external nose present HEAD & SCALP: normal to inspection, normocephalic and atraumatic FACE & SINUS: normal facial exam and face symmetric NOSE: Normal external nose present and Normal nares present EXTERNAL EAR: Yes external ears normal EXTERNAL AUDITORY CANAL: EAC's normal MOUTH: Normal oral and palatal mucosa present, lip normal and tongue normal Eye: COMMON NORMALS: Equal, round and reactive pupils present and conjunctivae normal GENERAL EYE: appearance normal, both eyes and all related structures ALIGNMENT: Yes alignment normal PERIORBITAL: periorbital findings normal EYELID: eyelids normal CONJUNCTIVA: Yes conjunctivae normal SCLERA: sclerae normal PUPIL: Yes Equal, round and reactive pupils present Neck/C-Spine: COMMON NORMALS: full ROM, no lymphadenopathy, supple, no meningeal signs and no JVD GENERAL: Yes normal visual inspection and Yes trachea midline Chest: COMMONS NORMALS: normal inspection of the chest and normal palpation of entire chest wall Resp: COMMON NORMALS: normal respiratory effort, No retractions and No use of accessory muscles EFFORT & INSPECTION: Yes able to speak in complete sentences and Yes symmetric chest movement AUSCULTATION: no crackles, no rales, no rhonchi and no wheezes Cardio: COMMON NORMALS: no JVD, regular rate, regular rhythm, S1 normal heart sound present and S2 normal heart sound present RATE: regular rate RHYTHM: regular rhythm HEART SOUNDS: S1 normal heart sound present, S2 normal heart sound present, no click, no gallops, no murmurs, no rubs and abnormal split S2 GI: COMMON NORMALS: Soft to palpation and No hepatosplenomegaly present PALPATION: Yes Soft to palpation, No Tenderness to palpation present (GI), No Guarding due to palpation present (GI), No Rigid due to palpation, Yes No hepatosplenomegaly present, No Hernia present, No Palpable mass present and No Pulsatile mass present : COMMON NORMALS: Yes no CVA tenderness BLADDER/KIDNEY EXAM: Yes no CVA tenderness EXTERNAL FEMALE EXAM: No Hernia present Back/Pelvis: COMMON NORMALS: no CVA tenderness, thoracic and lumbar spine normal to inspection, no thoracic nor lumbar tenderness and thoraco-lumbar ROM normal Extremity: COMMON NORMALS: normal to inspection, full ROM, capillary refill normal, no joint enlargement, no clubbing, cyanosis or edema and no calf tenderness Neuro: COMMON NORMALS: patient oriented x3, CN's II-XII intact bilaterally, moves all extremities, no focal motor deficits and no sensory deficits noted MENINGEAL SIGNS: Yes no meningeal signs SPEECH: speech normal Psych: COMMON NORMALS: mental status grossly normal APPEARANCE: Yes well kempt ATTITUDE: Yes uncooperative and Yes evasive ACTIVITY/MOTOR BEHAVIOR: Yes Avoids eye contact (attititude/behavior) SPEECH: Yes slow MOOD & AFFECT: Yes depressed mood Skin: COMMON NORMALS: no rashes or lesions noted, turgor normal, no jaundice, no petechiae and no mottling GENERAL SKIN EXAM: no rashes or lesions noted and turgor normal MDM - Psych MDM Narrative: Medical decision making narrative: The case was reviewed with Dr. Cloud and he agrees to admission for further evaluation and care. Discharge Plan Discharge Patient Disposition: Admitted As Inpatient Clinical Impression: Acute psychosis, Thoughts of self harm Condition: Stable Prescriptions: No Action omeprazole 20 mg capsule,delayed release(DR/EC) 20 mg PO DAILY 30 Days Qty: 30 RF: 2 hydroxyzine HCl 25 mg tablet 25 mg PO BID PRN (Reason: anxiety) 30 Days Qty: 60 RF: 1 mupirocin 2 % ointment 1 applic TOPICAL BID 5 Days Qty: 15 RF: 0 risperidone [Risperdal] 0.5 mg tablet 0.5 mg PO BID Qty: 60 RF: 1 dextromethorphan polistirex 30 mg/5 mL suspension,extended rel 12 hr 10 ml PO Q12H MDD 20 ml PRN (Reason: cough) Qty: 89 RF: 0 buspirone 5 mg tablet 5 mg PO BID Qty: 60 RF: 0 cyclobenzaprine 5 mg tablet 5 mg PO TID PRN (Reason: Spasms) RF: 0 28 mg iron- 800 mcg Tablet 1 tab PO DAILY RF: 0 Referrals: Avril Cloud MD [Primary Care Provider] - Coding Level of Care Code ED Research Worker Kitchen for Chg Angelo
[2020-04-03 21:33] VITALS: BP 117/68; PULSE 67; RESP 18; TEMP 37.1; O2SAT 99
[2020-04-03 22:04] LABS: Basophils # 0.1 10^3/uL (0.0-0.1); Basophils % 0.6 %; Eosinophils # 0.4 10^3/uL (0.0-0.8); Eosinophils % 3.8 %; Hematocrit 43.3 % (37.0-47.0); Lymphocytes # 2.8 10^3/uL (0.8-4.8); Lymphocytes % 24.2 %; Mean Corpuscular Hemoglobin 26.2 pg (28.0-34.0); Mean Corpuscular Volume 87.1 fL (81-99); Mean Platelet Volume 10.7 fL (7.4-10.4); Monocytes # 0.8 10^3/uL (0.2-0.9); Neutrophils # 7.3 10^3/uL (1.8-7.7); Neutrophils % 64.1 %; Nucleated Red Blood Cells % 0 %; Platelet Count 320 10^3/cmm (130-400); Red Blood Count 4.97 10^6/uL (4.1-5.3); Red Cell Distribution Width 14.1 % (12.1-15.1); White Blood Count 11.4 10^3/uL (4.0-10.0)
[2020-04-03 22:09] LABS: Amphetamines Screen Urine Negative (Negative); Barbiturates Screen Urine Negative (Negative); Benzodiazepines Screen Urine Negative (Negative); Cocaine Screen Urine Negative (Negative); Opiate Screen Urine Negative (Negative); PCP Screen Urine Negative (Negative); THC Screen Urine Negative (Negative)
[2020-04-03] MEDS: LORazepam 2 mg Tablet PO (22:14)
[2020-04-03 22:25] LABS: HCG, Serum Qual Negative (Negative)
[2020-04-03 22:33] LABS: Bilirubin Urine Neg (NEGATIVE); Blood Urine Neg (Negative); Glucose Urine UA Norm (Normal); Ketones Urine Negative (Negative); Leukocyte Esterase Urine Negative (Negative); Nitrate Urine Negative (Negative); Protein Urine Neg (Negative); Urine Appearance Clear (CLEAR); Urine Color Yellow (Yellow); Urobilinogen Urine Norm (Negative); pH Urine 7 (5-7)
[2020-04-03 22:34] LABS: Bacteria Urine TRACE; Mucus Urine TRACE; RBC Urine 0-4 /hpf (0-2); Squamous Epithelial Cell Urine 0-4 (0-5); WBC Urine 0-4 /hpf (0-5)
[2020-04-03 22:35] LABS: Add Urine Culture? No
[2020-04-03 22:37] LABS: Lithium 0.1 mmol/L (0.6-1.2)
[2020-04-03 22:40] LABS: Alanine Aminotransferase 19 U/L (0-33); Albumin Level 4.2 g/dL (3.5-5.2); Alkaline Phosphatase 105 IU/L (35-105); Anion Gap 16.4 (5-19); Blood Urea Nitrogen 13 mg/dL (6-20); Calcium 9.6 mg/dL (8.5-10.5); Carbon Dioxide 22 mmol/L (22-29); Chloride 103 mmol/L (98-107); Creatinine Clr Calc Pharmacy 148.9915; Globulin 3.3 g/dL (1.3-4.6); Glomerular Filtration Rate 116.6 mL/min (90-130); Glucose 85 mg/dL (65-115); Magnesium 2.3 mg/dL (1.7-2.3); Osmolality Calculated 279 mOsm/kg (285-295); Potassium 4.4 mmol/L (3.5-5.1); Sodium 137 mmol/L (136-145); Thyroid Stimulating Hormone 1.41 uIU/mL (0.27-4.20); Total Bilirubin 0.2 mg/dL (0.15-1.2); Total Protein 7.5 g/dL (6.6-8.7)
[2020-04-03 22:43] LABS: Acetaminophen < 5.0 ug/mL (10-30); Alcohol Level < 10 mg/dL (0-10); Salicylate < 0.3 mg/dL (3-10)
[2020-04-03 22:44] LABS: Aspartate Amino Transferase 24 U/L (0-32); Phenytoin Dilantin < 0.8 ug/mL (10-20); Valproic Acid Level < 2.8 mcg/mL (50-100)
[2020-04-03 22:45] LABS: Carbamazepine Tegretol < 2.0 ug/mL (4.0-12.0)
[2020-04-03 23:04] VITALS: BP 117/68; PULSE 67; RESP 18; TEMP 37.1; O2SAT 99
[2020-04-03 23:17] VITALS: BP 134/89; PULSE 70; RESP 18; TEMP 36.7; O2SAT 100
[2020-04-04 06:00] VITALS: BP 109/73; PULSE 71; RESP 16; TEMP 36.1; O2SAT 99
--- NOTE | 2020-04-04 10:51 | PM.NHP ---
Providers/Chief Complaint Admitting Physician: Gilmar Schafer M.D. Primary Care Provider: Avril Cloud MD Referral Source: [facility] Chief Complaint: SI HPI NPU History of Present Illness Lynne Singh is a 29 year old female who has become increasingly confused and bothered by visual hallucinations. These hallucinations are shadows and ill defined forms. They bother her so badly that she is considering hurting herself and feels she needs to come into the hospital. The patient is very withdrawn and not very forthcoming with any information. Review of Systems General: Reports: ROS unobtainable due to mental status Meds NPU Home Medications Medication Instructions Recorded Confirmed Last Taken Type No Known Home Medications 04/04/20 04/04/20 Unknown History Allergies Allergy/AdvReac Type Severity Reaction Status Date / Time amoxicillin Allergy Severe causes Verified 03/29/20 13:04 really bad migraines clindamycin Allergy ALGY-Swell Verified 03/29/20 13:04 Lip/Tongue/Throat PFSH NPU PFSH: Medical History Acute bacterial conjunctivitis of both eyes Chronic, recurrent infections. Depression Generalized anxiety disorder GERD (gastroesophageal reflux disease) Hip pain Hx LEEP (loop electrosurgical excision procedure), cervix, Staph skin infection Surgical History Hx of dilation and curettage Family History Father Melanoma Social History Smoking and tobacco status: former smoker Quit status (tobacco): has quit using tobacco Year quit tobacco: 2019 Former quit date comment: 10/30/2019 Second hand smoke exposure: Yes Smoking risk assessment/counseling performed?: No Alcohol intake: never Desire information about alcohol rehabilitation?: No Counseling given: No Desire information about substance/drug rehabilitation?: No Counseling given: No Lives independently: No Household members: spouse and family Housing: House Marital status: Number of children: 1 service: No Current gender identity: Female Other Psychiatric History: Other Psychiatric History: The patient has been on multiple psychotropics. Fluoxetine was the most helpful but its impact faded, as has often happened. She is never been on paroxetine and this may be helpful. Mental Status Exam MSE Comments: This is a 29-year-old female who presents at her stated age. She is of good body habitus, clean and neat. She makes no eye contact and struggles to formulate her thoughts. Mood is clearly dysphoric and affect is flat. No evidence of conchita. No evidence of psychosis. She is anergic, despondent and fretful but denies suicidal or homicidal ideation, plan or intent, the avoidance of which motivated her seeking admission. Cognitive functions are adequate and insight and judgment into her illness are modest. Vitals/I&O/Wt Last Vital Signs Temp 97 F L 04/04/20 06:00 Pulse 71 04/04/20 06:00 Resp 16 04/04/20 06:00 BP 109/73 04/04/20 06:00 Pulse Ox 99 04/04/20 06:00 Weight last 48 hrs Weight 210 lb Weight 202 lb Data NPU : 04/03/20 21:43 04/03/20 21:43 A&P Assessment and plan (1) Thoughts of self harm: The patient is depressed and requires adjustment of pharmacotherapy. Status: Acute (2) Depression: Adjustments of pharmacotherapy are underway. Status: Acute Qualifiers: Depression Type: major depressive disorder Major depression recurrence: recurrent Active/Remission status: currently active Major depression episode severity: severe Psychotic features: with psychotic features Qualified Code(s): F33.3 - Major depressive disorder, recurrent, severe with psychotic symptoms Involuntary Hold Information 96 Hour Hold: 96 Hour Involuntary Admission: Yes 96 Hour Hold Ending Date: 04/09/20 96 Hour Hold Ending Time: 12:01 Attestations NPU Medical Necessity Statement*: I anticipate 5-7 nights hospitalization. Time Spent in Patient Care: Greater than 35 minutes (>than 50% of time spent in counselling and/or direct pt care on unit). 50 minutes Coding Level of Care Code Acute Wet Primer Powder Blender for Rony Fwradha Diagnoses Thoughts of self harm R45.89 Depression F33.3 Depression Type: major depressive disorder Major depression recurrence: recurrent Active/Remission status: currently active Major depression episode severity: severe Psychotic features: with psychotic features
[2020-04-04] MEDS: sulfacetamide 10% Op Soln 15 mL Btl 1 DROP EYE-BOTH ×3 (11:30→21:03)
[2020-04-04 14:00] VITALS: BP 116/75; PULSE 87; RESP 20; TEMP 36.8; O2SAT 97
[2020-04-04] MEDS: cetylpyridinium Lozenge 1 EACH MUCOUS MEM (18:06)
[2020-04-04] MEDS: hyDROXYzine 25 mg Capsule 50 MG PO ×2 (18:06→21:04)
[2020-04-04 20:57] VITALS: BP 117/73; PULSE 86; RESP 16; TEMP 36.7; O2SAT 98
[2020-04-04] MEDS: trazodone 50 mg Tablet PO (21:04)
--- NOTE | 2020-04-04 21:49 | PC.NURSE ---
Pt given scheduled eye gtts and PRN meds Vistaril for anxiety and Trazodone for sleep per pt request.
[2020-04-05 06:00] VITALS: BP 126/79; PULSE 67; RESP 18; TEMP 36.7; O2SAT 98
[2020-04-05] MEDS: acetaminophen 325 mg Tablet 650 MG PO ×2 (08:48→21:34)
[2020-04-05] MEDS: sulfacetamide 10% Op Soln 15 mL Btl 1 DROP EYE-BOTH ×4 (08:49→21:33)
--- NOTE | 2020-04-05 13:18 | PM.NPN ---
Subjective NPU Subjective: Interval history: Patient describes a history of somatization and being easily overwhelmed by even the most minor source of stress. Her coping skills are quite poor. She cannot name a single way in which her irritability or feelings of anxiety can be reduced by any behavior or thought process. She says she has had multiple attempts to find the right pill that will make her feel better and not be so stressed out but all of them have side effects. She admitted that at times she has suicidal thoughts but at no time has she ever really considered how she would do that and has not been a danger to do that. She denies the presence of auditory or visual hallucinations. She is angry because she feels that she has too many things to do to care for her son and to care for herself. Mental Status Exam MSE Comments: Mental Status Exam: The patient is alert and interpersonally engaged. Her eye contact is poor. Information provided is internally consistent. Appearance: hygiene is fair; no gross neurological deficits., gait is unremarkable; AIMS=0 Speech: Speech is of normal rate and rhythm and easily understood. She provides easy discourse and elaborates on answers appropriately. Thought processes: Thought processes are concrete. Judgment is not adequate for safety without supervision. Associations: intact Psychotic processes: There is no indication of guarding or paranoia. There is no attention to the internal stimuli. Auditory and visual hallucinations are denied. Judgment: Insight is poor. Problem solving skills are adequate for safety. Orientation: The patient is oriented to person, place time and situation. Memory: no deficits noted in immediate, intermediate, or remote spheres. Attention: The patient is alert and interpersonally engaged. Language: Verbalizations are coherent. Fund of knowledge: Fund of knowledge is poor with a noteworthy deficit and comprehension of mental health concepts which she freely verbalizes. Affect/Mood: Affect is irritable with a depressed mood. Denied current suicidal ideation Affective range is constricted Psychosis: perception impaired primarily through cognitive deficit and lack of understanding of appropriate expectations of medications; reality testing challenged. Cognition: Ability to Follow Directions: Good Patient Orientation (long list): Person, Place, Time, Name, Age, Birthday, Day of Month, Day of Week, Month, Time of Day and Year Hallucination Type: None Delusion Description: Not Present Behavior: Patient Behavior: Cooperative Speech Pattern: Clear Vitals/I&O/Wt Last Vital Signs Temp 98.1 F 04/05/20 06:00 Pulse 67 06/08/20 06:00 Resp 18 04/05/20 06:00 BP 126/79 04/05/20 06:00 Pulse Ox 98 04/05/20 06:00 Weight last 48 hrs Weight 95.254 kg Weight 91.626 kg Data NPU : 04/03/20 21:43 04/03/20 21:43 A&P Assessment and plan (1) Thoughts of self harm: Patient has thoughts of ending her life but no intent or plan at this time. Status: Acute (2) Depression: Patient meets criteria for dysthymic disorder. Her current status is 1 of an elevation of her persistent sadness and irritability. She meets criteria for major depression?recurrent, mild severity. She does not appear to be an imminent risk to self or others and her 96-hour involuntary commitment will be discontinued. Plan at this time is to initiate Effexor 37.5 mg in the morning and Atarax 25 mg every 6 hours as needed agitation or anxiety. Status: Acute Qualifiers: Depression Type: major depressive disorder Major depression recurrence: recurrent Active/Remission status: currently active Major depression episode severity: severe Psychotic features: with psychotic features Qualified Code(s): F33.3 - Major depressive disorder, recurrent, severe with psychotic symptoms Involuntary Hold Information 96 Hour Hold: 96 Hour Involuntary Admission: Yes 96 Hour Hold Ending Date: 04/09/20 96 Hour Hold Ending Time: 12:01 Attestations NPU Medical Necessity Statement*: Patient will remain in the hospital another 2-4 nights for assessment of medication efficacy and tolerability. Coding Level of Care Code Acute Quotation Clerk for Rony Stephens Diagnoses Thoughts of self harm R45.89 Depression F33.3 Depression Type: major depressive disorder Major depression recurrence: recurrent Active/Remission status: currently active Major depression episode severity: severe Psychotic features: with psychotic features
[2020-04-05 13:35] VITALS: BP 102/68; PULSE 68; RESP 18; TEMP 36.7; O2SAT 98
[2020-04-05] MEDS: venlafaxine ER (24HR) 37.5 mg Capsule PO (13:35)
[2020-04-05] MEDS: hyDROXYzine 25 mg Capsule 50 MG PO (21:34)
[2020-04-05] MEDS: trazodone 50 mg Tablet PO (21:35)
[2020-04-05 22:00] VITALS: BP 102/68; PULSE 68; RESP 18; TEMP 36.7; O2SAT 93
[2020-04-06 06:00] VITALS: BP 110/73; PULSE 64; RESP 17; TEMP 37.2; O2SAT 97
[2020-04-06] MEDS: venlafaxine ER (24HR) 37.5 mg Capsule PO (09:22)
[2020-04-06] MEDS: sulfacetamide 10% Op Soln 15 mL Btl 1 DROP EYE-BOTH ×4 (09:22→21:55)
--- NOTE | 2020-04-06 11:30 | P.PN_ITS ---
Subjective NPU Subjective: Interval history: I feel like there are spirits in the room with me but keep me awake at night. I get so stressed out and then I get paranoid Mental Status Exam MSE Comments: Mental Status Exam: The patient is alert and interpersonally engaged. Her eye contact is fair. Information provided is internally consistent. Appearance: hygiene is fair; no gross neurological deficits., gait is unremarkable; AIMS=0 Speech: Speech is of normal rate and rhythm and easily understood. She provides easy discourse and elaborates on answers appropriately. Thought processes: Thought processes are concrete. Judgment is not adequate for safety without supervision. Associations: intact Psychotic processes: There is no indication of guarding or paranoia. There is no attention to the internal stimuli. Auditory and visual hallucinations are denied. Judgment: Insight is poor. Problem solving skills are adequate for safety. Orientation: The patient is oriented to person, place time and situation. Memory: no deficits noted in immediate, intermediate, or remote spheres. Attention: The patient is alert and interpersonally engaged. Language: Verbalizations are coherent. Fund of knowledge: Fund of knowledge is poor with a noteworthy deficit and comprehension of mental health concepts which she freely verbalizes. Affect/Mood: Affect is irritable with a depressed mood. Denied current suicidal ideation Affective range is constricted Psychosis: perception impaired primarily through cognitive deficit and lack of understanding of appropriate expectations of medications; reality testing challenged. Cognition: Patient Appearance: Disheveled/Poor Hygiene Level of Consciousness: Awake, Alert, Appropriate and Follows Commands Patient Cognition Impaired: No Ability to Follow Directions: Good Patient Orientation (long list): Person, Place, Time, Name, Age, Birthday, Day of Month, Day of Week, Month, Time of Day and Year Comprehension Ability: No Impairment Hallucination Type: Auditory Delusion Description: Not Present Thought Process: Appropriate Affect: Affect Description: Appropriate and Calm Behavior: Patient Behavior: Appropriate, Cooperative and Irritable Speech Pattern: Appropriate and Clear Vitals/I&O/Wt Last Vital Signs Temp 98.9 F 04/06/20 06:00 Pulse 64 04/06/20 06:00 Resp 17 04/06/20 06:00 BP 110/73 04/06/20 06:00 Pulse Ox 97 04/06/20 06:00 Data NPU : 04/03/20 21:43 04/03/20 21:43 A&P Assessment and plan (1) Thoughts of self harm: Patient has thoughts of ending her life but no intent or plan at this time. Status: Acute (2) Depression: Patient meets criteria for dysthymic disorder. Her current status is 1 of an elevation of her persistent sadness and irritability. She meets criteria for major depression?recurrent, mild severity. She does not appear to be an i mminent risk to self or others and her 96-hour involuntary commitment will be discontinued. Plan at this time is to initiate Effexor 37.5 mg in the morning and Atarax 25 mg every 6 hours as needed agitation or anxiety. Hospital day #3: Patient continues to divest herself of responsibility with griffin rding her capacity for managing stress. She was able to identify that when she is anxious, it helps her feel better when she washes dishes. However she cannot always do this and could not come up with any other sublimating activities. She reported feelings of paranoia and a feeling of spirits in the room. We discussed her history of adverse response to risperidone resulting in akathisia. Plan: Day #2 on Effexor XR 37.5 mg daily. Will start chlorpromazine 25 mg at bedtime and then as needed paranoia/anxiety during the day. Status: Acute Qualifiers: Depression Type: major depressive disorder Major depression recurrence: recurrent Active/Remission status: currently active Major depression episode severity: severe Psychotic features: with psychotic features Qualified Code(s): F33.3 - Major depressive disorder, recurrent, severe with psychotic symptoms Involuntary Hold Information 96 Hour Hold: 96 Hour Involuntary Admission: Yes 96 Hour Hold Ending Date: 04/09/20 96 Hour Hold Ending Time: 12:01 Attestations NPU Medical Necessity Statement*: Patient will remain in the hospital another 2-4 nights for assessment of medication efficacy and tolerability. Coding Level of Care Code Acute Display Trimmer for Rony Stephens Diagnoses Thoughts of self harm R45.89 Depression F33.3 Depression Type: major depressive disorder Major depression recurrence: recurrent Active/Remission status: currently active Major depression episode severity: severe Psychotic features: with psychotic features
[2020-04-06] MEDS: acetaminophen 325 mg Tablet 650 MG PO ×2 (13:24→21:55)
[2020-04-06 13:42] VITALS: BP 122/78; PULSE 77; RESP 18; TEMP 36.7; O2SAT 100
[2020-04-06 20:48] VITALS: BP 105/69; PULSE 83; RESP 15; TEMP 36.6; O2SAT 96
[2020-04-06] MEDS: chlorPROMazine 25 mg Tablet PO (21:55)
[2020-04-07 06:00] VITALS: BP 116/75; PULSE 72; RESP 14; TEMP 37.1; O2SAT 96
[2020-04-07] MEDS: sulfacetamide 10% Op Soln 15 mL Btl 1 DROP EYE-BOTH ×4 (08:31→21:36)
[2020-04-07] MEDS: venlafaxine ER (24HR) 37.5 mg Capsule PO (08:31)
--- NOTE | 2020-04-07 09:44 | PC.SOCIAL ---
Today, patient said that she feels like she is insane. She is concerned about her anxiety and paranoia.
--- NOTE | 2020-04-07 10:24 | PM.NPN ---
Subjective NPU Subjective: Interval history: I do not know whether I am ready to go or not. Patient complains of paranoia, feeling like ghosts and spirits are trying to enter her body. She complains of being perplexed as to what she should do next and continues to have depressive symptoms. Mental Status Exam MSE Comments: Mental Status Exam: The patient is alert and interpersonally engaged. Her eye contact is fair. Information provided is internally consistent. Appearance: hygiene is fair; no gross neurological deficits., gait is unremarkable; AIMS=0 Speech: Speech is of normal rate and rhythm and easily understood. She provides easy discourse and elaborates on answers appropriately. Thought processes: Thought processes are concrete. Judgment is not adequate for safety without supervision. Associations: intact Psychotic processes: There is no indication of guarding or paranoia. There is no attention to the internal stimuli. Auditory and visual hallucinations are denied. Judgment: Insight is poor. Problem solving skills are adequate for safety. Orientation: The patient is oriented to person, place time and situation. Memory: no deficits noted in immediate, intermediate, or remote spheres. Attention: The patient is alert and interpersonally engaged. Language: Verbalizations are coherent. Fund of knowledge: Fund of knowledge is poor with a noteworthy deficit and comprehension of mental health concepts which she freely verbalizes. Affect/Mood: Affect is euthymic with a depressed mood. Denied current suicidal ideation Affective range is good Psychosis: perception impaired primarily through cognitive deficit and lack of understanding of appropriate expectations of medications; reality testing challenged. Cognition: Patient Appearance: Disheveled/Poor Hygiene Level of Consciousness: Awake, Alert, Appropriate and Follows Commands Patient Cognition Impaired: No Ability to Follow Directions: Good Patient Orientation (long list): Person, Place, Time, Name, Age, Birthday, Day of Month, Day of Week, Month, Time of Day and Year Comprehension Ability: No Impairment Hallucination Type: Tactile and Visual Delusion Description: Not Present Thought Process: Appropriate Affect: Affect Description: Appropriate and Calm Behavior: Patient Behavior: Appropriate Speech Pattern: Clear Vitals/I&O/Wt Last Vital Signs Temp 98.8 F 04/07/20 06:00 Pulse 72 04/07/20 06:00 Resp 14 04/07/20 06:00 BP 116/75 04/07/20 06:00 Pulse Ox 96 04/07/20 06:00 Data NPU : 04/03/20 21:43 04/03/20 21:43 A&P Assessment and plan (1) Thoughts of self harm: Patient has thoughts of ending her life but no intent or plan at this time. Status: Acute (2) Depression: Patient meets criteria for dysthymic disorder. Her current status is 1 of an elevation of her persistent sadness and irritability. She meets criteria for major depression?recurrent, mild severity. She does not appear to be an imminent risk to self or others and her 96-hour involuntary commitment will be discontinued. Plan at this time is to initiate Effexor 37.5 mg in the morning and Atarax 25 mg every 6 hours as needed agitation or anxiety. Hospital day #3: Patient continues to divest herself of responsibility with regarding her capacity for managing stress. She was able to identify that when she is anxious, it helps her feel better when she washes dishes. However she cannot always do this and could not come up with any other sublimating activities. She reported feelings of paranoia and a feeling of spirits in the room. We discussed her history of adverse response to risperidone resulting in akathisia. Plan: Day #2 on Effexor XR 37.5 mg daily. Will start chlorpromazine 25 mg at bedtime and then as needed paranoia/anxiety during the day. Hospital day #4: While the patient complains of being depressed and having paranoia, she is observed interacting freely and without difficulty with staff. She is participating actively and enthusiastically and group psychotherapy. She has an outpatient appointment tomorrow afternoon. Plan increase Effexor to 75 mg daily and will hold at that level as it will take several weeks for her to show significant benefit from this medication. Chlorpromazine will be increased to 50 mg at bedtime and 25 mg as needed paranoia during the day. Status: Acute Qualifiers: Depression Type: major depressive disorder Major depression recurrence: recurrent Active/Remission status: currently active Major depression episode severity: severe Psychotic features: with psychotic features Qualified Code(s): F33.3 - Major depressive disorder, recurrent, severe with psychotic symptoms Involuntary Hold Information 96 Hour Hold: 96 Hour Involuntary Admission: Yes 96 Hour Hold Ending Date: 04/09/20 96 Hour Hold Ending Time: 12:01 Attestations NPU Medical Necessity Statement*: Patient to remain in the hospital 1 more night till the completion of her 96-hour involuntary commitment. 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
[2020-04-07] MEDS: chlorPROMazine 50 mg Tablet PO (10:50)
[2020-04-07 14:00] VITALS: BP 101/57; PULSE 78; RESP 18; TEMP 37.3; O2SAT 96
[2020-04-07] MEDS: chlorPROMazine 25 mg Tablet PO (21:36)
[2020-04-07 22:00] VITALS: BP 135/79; PULSE 72; RESP 18; TEMP 37; O2SAT 97
[2020-04-07] MEDS: acetaminophen 325 mg Tablet 650 MG PO (22:15)
[2020-04-08 06:00] VITALS: BP 102/68; PULSE 65; RESP 18; TEMP 36.5; O2SAT 96
[2020-04-08] MEDS: chlorPROMazine 25 mg Tablet PO (08:20)
[2020-04-08] MEDS: venlafaxine ER (24HR) 75 mg Capsule PO (08:20)
[2020-04-08] MEDS: sulfacetamide 10% Op Soln 15 mL Btl 1 DROP EYE-BOTH ×4 (08:20→21:29)
--- NOTE | 2020-04-08 08:21 | PC.NURSE ---
PRN THORAZINE 25 MG GIVEN PO PER PT C/O NERVES PT STATED SHE FEELS LIKE THE DOCTOR IS GOING TO BOOT HER OUT TODAY
--- NOTE | 2020-04-08 10:51 | PM.NPN ---
Subjective NPU Subjective: Interval history: I'm not ready to go. My anxiety will go for away for a while and then it comes back. I want to go away for good. Records indicate that she is sleeping well.. Mental Status Exam MSE Comments: Mental Status Exam: The patient is alert and interpersonally engaged. Her eye contact is fair. Information provided is internally consistent. Appearance: hygiene is fair; no gross neurological deficits., gait is unremarkable; AIMS=0 Speech: Speech is of normal rate and rhythm and easily understood. She provides easy discourse and elaborates on answers appropriately. Thought processes: Thought processes are concrete. Judgment is not adequate for safety without supervision. Associations: intact Psychotic processes: There is no indication of guarding or paranoia. There is no attention to the internal stimuli. Auditory and visual hallucinations are denied. Judgment: Insight is poor. Problem solving skills are adequate for safety. Orientation: The patient is oriented to person, place time and situation. Memory: no deficits noted in immediate, intermediate, or remote spheres. Attention: The patient is alert and interpersonally engaged. Language: Verbalizations are coherent. Fund of knowledge: Fund of knowledge is poor with a noteworthy deficit and comprehension of mental health concepts which she freely verbalizes. Affect/Mood: Affect is euthymic with a depressed mood. Denied current suicidal ideation Affective range is good Psychosis: perception impaired primarily through cognitive deficit and lack of understanding of appropriate expectations of medications; reality testing challenged. Cognition: Patient Appearance: Disheveled/Poor Hygiene Level of Consciousness: Awake, Alert, Appropriate and Follows Commands Patient Cognition Impaired: No Ability to Follow Directions: Good Patient Orientation (long list): Person, Place, Time, Name, Age, Birthday, Day of Month, Day of Week, Month, Time of Day and Year Comprehension Ability: No Impairment Hallucination Type: None Delusion Description: Not Present Thought Process: Appropriate Affect: Affect Description: Calm Behavior: Patient Behavior: Appropriate Speech Pattern: Clear Vitals/I&O/Wt Last Vital Signs Temp 97.7 F 04/08/20 06:00 Pulse 65 04/08/20 06:00 Resp 18 04/08/20 06:00 BP 102/68 04/08/20 06:00 Pulse Ox 96 04/08/20 06:00 Data NPU : 04/03/20 21:43 04/03/20 21:43 A&P Assessment and plan (1) Thoughts of self harm: Patient is no longer having such thoughts. She just wants her anxiety to go away. Status: Resolved (2) Depression: Patient meets criteria for dysthymic disorder. Her current status is 1 of an elevation of her persistent sadness and irritability. She meets criteria for major depression?recurrent, mild severity. She does not appear to be an imminent risk to self or others and her 96-hour involuntary commitment will be discontinued. Plan at this time is to initiate Effexor 37.5 mg in the morning and Atarax 25 mg every 6 hours as needed agitation or anxiety. Hospital day #3: Patient continues to divest herself of responsibility with regarding her capacity for managing stress. She was able to identify that when she is anxious, it helps her feel better when she washes dishes. However she cannot always do this and could not come up with any other sublimating activities. She reported feelings of paranoia and a feeling of spirits in the room. We discussed her history of adverse response to risperidone resulting in akathisia. Plan: Day #2 on Effexor XR 37.5 mg daily. Will start chlorpromazine 25 mg at bedtime and then as needed paranoia/anxiety during the day. Hospital day #4: While the patient complains of being depressed and having paranoia, she is observed interacting freely and without difficulty with staff. She is participating actively and enthusiastically and group psychotherapy. She has an outpatient appointment tomorrow afternoon. Plan increase Effexor to 75 mg daily and will hold at that level as it will take several weeks for her to show significant benefit from this medication. Chlorpromazine will be increased to 50 mg at bedtime and 25 mg as needed paranoia during the day. Hospital day #5: Patient continues to be driven by dependency needs and multiple somatic complaints. She is resistant to education regarding appropriate expectations for medication and control of anxiety. She does appear to be laboring under significant situational anxiety and adjustments in medications may provide her better opportunity to tolerate this. Plan at this time is to change her chlorpromazine at bedtime to gabapentin 600 mg at bedtime. Chlorpromazine as needed anxiety/paranoia during the day is increased to 50 mg up to 4 times daily. She again complains of hip pain which would more likely respond to ibuprofen than acetaminophen and that change was made. Status: Acute Qualifiers: Depression Type: major depressive disorder Major depression recurrence: recurrent Active/Remission status: currently active Major depression episode severity: severe Psychotic features: with psychotic features Qualified Code(s): F33.3 - Major depressive disorder, recurrent, severe with psychotic symptoms (3) Dysthymic disorder: Status: Chronic (4) Deficient knowledge of cognitive impairment: Status: Chronic Involuntary Hold Information 96 Hour Hold: 96 Hour Involuntary Admission: Yes 96 Hour Hold Ending Date: 04/09/20 96 Hour Hold Ending Time: 12:01 Attestations NPU Medical Necessity Statement*: Patient will remain in the hospital another 2-4 nights for assessment of medication efficacy and tolerability. 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
[2020-04-08 14:00] VITALS: BP 113/78; PULSE 73; RESP 18; TEMP 36.7; O2SAT 96
[2020-04-08] MEDS: ibuprofen 200 mg Tablet 400 MG PO (16:41)
[2020-04-08] MEDS: gabapentin 300 mg Capsule 600 MG PO (21:29)
[2020-04-08] MEDS: trazodone 50 mg Tablet PO (21:29)
[2020-04-08 21:42] VITALS: BP 111/75; PULSE 79; RESP 21; TEMP 37.2; O2SAT 98
[2020-04-09 06:00] VITALS: BP 105/72; PULSE 67; RESP 18; TEMP 37; O2SAT 97
[2020-04-09] MEDS: sulfacetamide 10% Op Soln 15 mL Btl 1 DROP EYE-BOTH ×3 (08:35→21:22)
[2020-04-09] MEDS: ibuprofen 200 mg Tablet 400 MG PO ×2 (08:36→17:53)
[2020-04-09] MEDS: venlafaxine ER (24HR) 75 mg Capsule PO (08:37)
--- NOTE | 2020-04-09 11:00 | PM.NPN ---
Subjective NPU Subjective: Interval history: Patient complaining of hearing voices and is irritated that she is not getting anything for that problem. She is also reporting ringing in her ears for the past 2 days since starting the Effexor. Mental Status Exam MSE Comments: Mental Status Exam: The patient is alert and interpersonally engaged. Her eye contact is fair. Information provided is internally consistent. Appearance: hygiene is fair; no gross neurological deficits., gait is unremarkable; AIMS=0 Speech: Speech is of normal rate and rhythm and easily understood. She provides easy discourse and elaborates on answers appropriately. Thought processes: Thought processes are concrete. Judgment is not adequate for safety without supervision. Associations: intact Psychotic processes: There is no indication of guarding or paranoia. There is no attention to the internal stimuli. Auditory and visual hallucinations are denied. Judgment: Insight is poor. Problem solving skills are adequate for safety. Orientation: The patient is oriented to person, place time and situation. Memory: no deficits noted in immediate, intermediate, or remote spheres. Attention: The patient is alert and interpersonally engaged. Language: Verbalizations are coherent. Fund of knowledge: Fund of knowledge is poor with a noteworthy deficit and comprehension of mental health concepts which she freely verbalizes. Affect/Mood: Affect is euthymic with a depressed mood. Denied current suicidal ideation Affective range is good Psychosis: perception impaired primarily through cognitive deficit and lack of understanding of appropriate expectations of medications; reality testing challenged. Cognition: Patient Appearance: Appropriate Level of Consciousness: Awake, Alert, Appropriate and Follows Commands Patient Cognition Impaired: No Ability to Follow Directions: Good Patient Orientation (long list): Person, Place, Time, Name, Age, Birthday, Day of Month, Day of Week, Month, Time of Day and Year Comprehension Ability: No Impairment Hallucination Type: None Delusion Description: Not Present Thought Process: Appropriate Affect: Affect Description: Calm Behavior: Patient Behavior: Cooperative Speech Pattern: Appropriate and Clear Vitals/I&O/Wt Last Vital Signs Temp 98.6 F 04/09/20 06:00 Pulse 67 04/09/20 06:00 Resp 18 04/09/20 06:00 BP 105/72 04/09/20 06:00 Pulse Ox 97 04/09/20 06:00 Data NPU : 04/03/20 21:43 04/03/20 21:43 A&P Assessment and plan (1) Thoughts of self harm: Patient is no longer having such thoughts. She just wants her anxiety to go away. Status: Resolved (2) Depression: Patient meets criteria for dysthymic disorder. Her current status is 1 of an elevation of her persistent sadness and irritability. She meets criteria for major depression?recurrent, mild severity. She does not appear to be an imminent risk to self or others and her 96-hour involuntary commitment will be discontinued. Plan at this time is to initiate Effexor 37.5 mg in the morning and Atarax 25 mg every 6 hours as needed agitation or anxiety. Hospital day #3: Patient continues to divest herself of responsibility with regarding her capacity for managing stress. She was able to identify that when she is anxious, it helps her feel better when she washes dishes. However she cannot always do this and could not come up with any other sublimating activities. She reported feelings of paranoia and a feeling of spirits in the room. We discussed her history of adverse response to risperidone resulting in akathisia. Plan: Day #2 on Effexor XR 37.5 mg daily. Will start chlorpromazine 25 mg at bedtime and then as needed paranoia/anxiety during the day. Hospital day #4: While the patient complains of being depressed and having paranoia, she is observed interacting freely and without difficulty with staff. She is participating actively and enthusiastically and group psychotherapy. She has an outpatient appointment tomorrow afternoon. Plan increase Effexor to 75 mg daily and will hold at that level as it will take several weeks for her to show significant benefit from this medication. Chlorpromazine will be increased to 50 mg at bedtime and 25 mg as needed paranoia during the day. Hospital day #5: Patient continues to be driven by dependency needs and multiple somatic complaints. She is resistant to education regarding appropriate expectations for medication and control of anxiety. She does appear to be laboring under significant situational anxiety and adjustments in medications may provide her better opportunity to tolerate this. Plan at this time is to change her chlorpromazine at bedtime to gabapentin 600 mg at bedtime. Chlorpromazine as needed anxiety/paranoia during the day is increased to 50 mg up to 4 times daily. She again complains of hip pain which would more likely respond to ibuprofen than acetaminophen and that change was made. Hospital day #6: In spite of having a as needed medication for anxiety and voices, she has not received any of it because she is not complaining of her to anybody else but this physician. It is also possible that the initiation of the Effexor may have produced the ringing in her ears. Options were discussed. Plan: Utilize as needed Thorazine for auditory hallucinations and replace Effexor with Wellbutrin SR 100 mg daily. Status: Acute Qualifiers: Depression Type: major depressive disorder Major depression recurrence: recurrent Active/Remission status: currently active Major depression episode severity: severe Psychotic features: with psychotic features Qualified Code(s): F33.3 - Major depressive disorder, recurrent, severe with psychotic symptoms (3) Dysthymic disorder: Status: Chronic (4) Deficient knowledge of cognitive impairment: Status: Chronic Involuntary Hold Information 96 Hour Hold: 96 Hour Involuntary Admission: Yes 96 Hour Hold Ending Date: 04/09/20 96 Hour Hold Ending Time: 12:01 Attestations NPU Medical Necessity Statement*: Patient will remain in the hospital another 2-4 nights for assessment of medication efficacy and tolerability. 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
[2020-04-09] MEDS: chlorPROMazine 50 mg Tablet PO (11:04)
--- NOTE | 2020-04-09 11:15 | PC.NURSE ---
Addendum entered by Clare Smalls LPN 04/09/20 12:44: prn med effective no further c/o hallucinations or hearing voices pt is resting quietly in bed in room Original Note: PRN THORAZINE 25 MG GIVEN PO PER PT C/O HEARING VOICES NO OUTWARD S/S OF HALLUCINATIONS WILL CONT TO MONITOR
[2020-04-09] MEDS: buPROPion SR (12 HR) 100 mg Tablet PO (11:19)
[2020-04-09 14:00] VITALS: BP 115/72; PULSE 74; RESP 18; TEMP 37.2; O2SAT 97
[2020-04-09] MEDS: gabapentin 300 mg Capsule 600 MG PO (20:27)
[2020-04-09] MEDS: trazodone 50 mg Tablet PO (20:28)
[2020-04-09 21:35] VITALS: BP 104/73; PULSE 73; RESP 20; TEMP 36.7; O2SAT 98
[2020-04-10 06:00] VITALS: BP 124/73; PULSE 64; RESP 20; TEMP 36.9; O2SAT 96
[2020-04-10] MEDS: buPROPion SR (12 HR) 100 mg Tablet PO (08:29)
--- NOTE | 2020-04-10 08:29 | P.PN_ITS ---
Subjective NPU Subjective: Interval history: Patient presents with a number of somatic complaints which do not appear to be connected to medications or her reason for being in the hospital. She complains of orthostatic dizziness when she holds her breath and stands up but not when she talks and stands up she complains that her right foot itches. She complained that it took more than 15 minutes for her to go to sleep last night the records indicates she slept quite well. She also complained that she does not get her morning medications till 9:00 in the morning. Mental Status Exam MSE Comments: Mental Status Exam: The patient is alert and interpersonally engaged. Her eye contact is fair. Information provided is internally consistent. Appearance: hygiene is fair; no gross neurological deficits., gait is unremarkable; AIMS=0 Speech: Speech is of normal rate and rhythm and easily understood. She provides easy discourse and elaborates on answers appropriately. Thought processes: Thought processes are concrete. Judgment is not adequate for safety without supervision. Associations: intact Psychotic processes: There is no indication of guarding or paranoia. There is no attention to the internal stimuli. Auditory and visual hallucinations are denied. Judgment: Insight is poor. Problem solving skills are adequate for safety. Orientation: The patient is oriented to person, place time and situation. Memory: no deficits noted in immediate, intermediate, or remote spheres. Attention: The patient is alert and interpersonally engaged. Language: Verbalizations are coherent. Fund of knowledge: Fund of knowledge is poor with a noteworthy deficit and comprehension of mental health concepts which she freely verbalizes. Affect/Mood: Affect is euthymic with a self-reported depressed mood. Denied current suicidal ideation Affective range is good Psychosis: perception impaired primarily through cognitive deficit and lack of understanding of appropriate expectations of medications; reality testing challenged. Cognition: Patient Appearance: Appropriate Level of Consciousness: Awake, Alert, Appropriate and Follows Commands Patient Cognition Impaired: No Ability to Follow Directions: Good Patient Orientation (long list): Person, Place, Time, Name, Age, Birthday, Day of Month, Day of Week, Month, Time of Day and Year Comprehension Ability: No Impairment Hallucination Type: None Delusion Description: Not Present Thought Process: Appropriate Affect: Affect Description: Calm Behavior: Patient Behavior: Appropriate Speech Pattern: Clear Vitals/I&O/Wt Last Vital Signs Temp 98.4 F 04/10/20 06:00 Pulse 64 06/13/20 06:00 Resp 20 H 04/10/20 06:00 BP 124/73 04/10/20 06:00 Pulse Ox 96 04/10/20 06:00 Data NPU : 04/03/20 21:43 04/03/20 21:43 A&P Assessment and plan (1) Thoughts of self harm: Patient is no longer having such thoughts. She just wants her anxiety to go away. Status: Resolved (2) Depression: Patient meets criteria for dysthymic disorder. Her current status is 1 of an elevation of her persistent sadness and irritability. She meets criteria for major depression?recurrent, mild severity. She does not appear to be an imminent risk to self or others and her 96-hour involuntary commitment will be discontinued. Plan at this time is to initiate Effexor 37.5 mg in the morning and Atarax 25 mg every 6 hours as needed agitation or anxiety. Hospital day #3: Patient continues to divest herself of responsibility with regarding her capacity for managing stress. She was able to identify that when she is anxious, it helps her feel better when she washes dishes. However she cannot always do this and could not come up with any other sublimating activities. She reported feelings of paranoia and a feeling of spirits in the room. We discussed her history of adverse response to risperidone resulting in akathisia. Plan: Day #2 on Effexor XR 37.5 mg daily. Will start chlorpromazine 25 mg at bedtime and then as needed paranoia/anxiety during the day. Hospital day #4: While the patient complains of being depressed and having paranoia, she is observed interacting freely and without difficulty with staff. She is participating actively and enthusiastically and group psychotherapy. She has an outpatient appointment tomorrow afternoon. Plan increase Effexor to 75 mg daily and will hold at that level as it will take several weeks for her to show significant benefit from this medication. Chlorpromazine will be increased to 50 mg at bedtime and 25 mg as needed paranoia during the day. Hospital day #5: Patient continues to be driven by dependency needs and multiple somatic complaints. She is resistant to education regarding appropriate expectations for medication and control of anxiety. She does appear to be laboring under significant situational anxiety and adjustments in medications may provide her better opportunity to tolerate this. Plan at this time is to change her chlorpromazine at bedtime to gabapentin 600 mg at bedtime. Chlorpromazine as needed anxiety/paranoia during the day is increased to 50 mg up to 4 times daily. She again complains of hip pain which would more likely respond to ibuprofen than acetaminophen and that change was made. Hospital day #6: In spite of having a as needed medication for anxiety and voices, she has not received any of it because she is not complaining of her to anybody else but this physician. It is also possible that the initiation of the Effexor may have produced the ringing in her ears. Options were discussed. Plan: Utilize as needed Thorazine for auditory hallucinations and replace Effexor with Wellbutrin SR 100 mg daily. Hospital day #7: Patient is no longer exhibiting suicidal ideation. She britney ated her first day of Wellbutrin yesterday. She is sleeping well. She complains of auditory hallucinations but does not ask for her as needed medication unless prompted. She has a variety of minor somatic complaints which she feels require her to be in the hospital. Plan: If she tolerates medication again today and she does not request as needed medication for auditory hallucinations, it appears that she will have reached maximum hospital benefit. Status: Acute Qualifiers: Depression Type: major depressive disorder Major depression recurrence: recurrent Active/Remission status: currently active Major depression episode severity: severe Psychotic features: with psychotic features Qualified Code(s): F33.3 - Major depressive disorder, recurrent, severe with psychotic symptoms (3) Dysthymic disorder: Status: Chronic (4) Deficient knowledge of cognitive impairment: Status: Chronic Involuntary Hold Information 96 Hour Hold: 96 Hour Involuntary Admission: Yes 96 Hour Hold Ending Date: 04/09/20 96 Hour Hold Ending Time: 12:01 Attestations NPU Medical Necessity Statement*: Patient will remain in the hospital another 1-3 nights to assess medication efficacy and tolerability. 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
[2020-04-10] MEDS: ibuprofen 200 mg Tablet 400 MG PO ×2 (08:30→15:07)
[2020-04-10] MEDS: sulfacetamide 10% Op Soln 15 mL Btl 1 DROP EYE-BOTH ×4 (08:30→22:38)
[2020-04-10 14:00] VITALS: BP 117/79; RESP 18; TEMP 36.9; O2SAT 100
[2020-04-10 22:00] VITALS: BP 110/66; PULSE 61; RESP 24; TEMP 36.8; O2SAT 98
[2020-04-10] MEDS: trazodone 50 mg Tablet PO (22:37)
[2020-04-10] MEDS: gabapentin 300 mg Capsule 600 MG PO (22:37)
--- NOTE | 2020-04-10 23:57 | PC.NURSE ---
patient requested medication to help her sleep. Trazadone 50mg given
[2020-04-11 06:00] VITALS: BP 102/66; PULSE 56; RESP 18; TEMP 37.2; O2SAT 98
[2020-04-11] MEDS: buPROPion SR (12 HR) 100 mg Tablet PO (08:41)
[2020-04-11] MEDS: ibuprofen 200 mg Tablet 400 MG PO (08:41)
[2020-04-11] MEDS: sulfacetamide 10% Op Soln 15 mL Btl 1 DROP EYE-BOTH ×4 (08:41→21:37)
[2020-04-11] MEDS: ondansetron 4 MG Tablet PO (10:03)
--- NOTE | 2020-04-11 10:04 | PC.NURSE ---
Addendum entered by Clare Smalls LPN 04/11/20 14:49: LATE ENTRY PRN MED EFFECTIVE NO FURTHER C/O NAUSEA Original Note: PRN ZOFRAN 4 MG GIVEN PO PER PT C/O STATED NAUSEA. WILL CONT TO MONITOR
[2020-04-11 14:00] VITALS: BP 114/72; PULSE 70; RESP 18; TEMP 36.9; O2SAT 98
[2020-04-11] MEDS: chlorPROMazine 50 mg Tablet PO (14:47)
--- NOTE | 2020-04-11 14:47 | PC.NURSE ---
Addendum entered by Clare Smalls LPN 04/11/20 16:36: prn med effective no further c/o hallucinations Original Note: PRN THORAZINE 50 MG GIVEN PO PER PT C/O HALLUCINATIONS NO OUTWARD S/S OF HALLUCINATIONS NOTED, DOESN'T APPEAR TO RESPOND TO INTERNAL STIMULI. WILL CONT TO MONITOR
--- NOTE | 2020-04-11 16:52 | P.PN_ITS ---
Subjective NPU Subjective: Interval history: The patient is doing better. She is less anxious and wants to know which medicines she is receiving. We reviewed those including dosage and indication. She is satisfied. We had originally placed her on Effexor but that proved ineffective and she is now on Wellbutrin SR 100 mg daily. She says the Wellbutrin SR actually helps but seems to fade in the afternoon. Medications: Reviewed: Yes Medication Review Details: Current Medications Benzocaine (Cepacol) 1 each MUCOUS MEM Q2H PRN PRN Reason: SORE THROAT Last Admin: 04/04/20 18:06 Dose: 1 each Documented by: Benztropine Mesylate (Cogentin) 1 mg PO BID PRN PRN Reason: Mild Extrapyramidal symptoms Bupropion HCl (Wellbutrin Sr (12 Hr)) 100 mg PO BID@08,16 RADHA Camphor/Menthol/Phenol (Blistex) 1 applic TOPICAL Q1H PRN PRN Reason: DRYNESS Chlorpromazine HCl (Thorazine) 50 mg PO Q6H PRN PRN Reason: AGITATION Last Admin: 04/11/20 14:47 Dose: 50 mg Documented by: Diphenhydramine HCl (Benadryl) 50 mg IM ONCE PRN PRN Reason: Severe Extrapyramidal Symptoms Gabapentin (Neurontin) 600 mg PO BEDTIME [facility] Last Admin: 04/10/20 22:37 Dose: 600 mg Documented by: Haloperidol (Haldol) 5 mg PO Q4H PRN PRN Reason: AGITATION Haloperidol Lactate (Haldol Inj) 5 mg IM Q4H PRN PRN Reason: Severe Aggression Ibuprofen (Motrin) 400 mg PO Q6H PRN PRN Reason: MODERATE PAIN Last Admin: 04/11/20 08:41 Dose: 400 mg Documented by: Loperamide HCl (Imodium Capsule) 2 mg PO Q6H PRN PRN Reason: DIARRHEA Nicotine (Nicoderm 21 Mg Patch) 1 patch TRANSDERMA DAILY PRN PRN Reason: NICOTINE WITHDRAWAL Nicotine Polacrilex (Nicorette) 2 mg BUCCAL Q2H PRN PRN Reason: NICOTINE WITHDRAWAL Olanzapine (Zyprexa Zydis) 5 mg PO Q4H PRN PRN Reason: Agitation/Psychosis Ondansetron HCl (Zofran) 4 mg PO Q6H PRN PRN Reason: NAUSEA AND VOMITING Last Admin: 04/11/20 10:03 Dose: 4 mg Documented by: Sulfacetamide Sodium (Bleph-10) 1 drop EYE-BOTH QID RADHA Last Admin: 04/11/20 16:52 Dose: 1 drop Documented by: Trazodone HCl (Desyrel) 50 mg PO BEDTIME PRN PRN Reason: sleep Last Admin: 04/10/20 22:37 Dose: 50 mg Documented by: Mental Status Exam MSE Comments: The patient is alert and interpersonally engaged. Her eye contact is fair. Appearance: hygiene is fair; no gross neurological deficits, gait is unremarkable; AIMS=0. Speech is of normal rate and volume, without dysarthria, aprosody or pressure. Thought processes are linear and goal-directed, without racing, blocking or looseness of association. Judgment is improved. She may soon be able to take care of herself. There is no indication of guarding or paranoia. There is no attention to internal stimuli. Auditory and visual hallucinations are denied. Insight is also improving. Problem solving skills are adequate for safety. The patient is oriented to person, place time and situation. No deficits noted in immediate, intermediate, or remote memory. Verbalizations are coherent. Fund of knowledge is poor with a noteworthy deficit and comprehension of mental health concepts which she freely verbalizes. Affect is euthymic with a self-reported depressed mood. The patient denies suicidal or homicidal ideation, plan or intent. Affective range is good. Perception is impaired primarily through cognitive deficit and lack of understanding of appropriate expectations of medications; reality testing challenged. Cognition Patient Appearance: Appropriate Level of Consciousness: Awake, Alert, Appropriate and Follows Commands Patient Cognition Impaired: No Ability to Follow Directions: Good Patient Orientation (long list): Person, Place, Time, Name, Age, Birthday, Day of Month, Day of Week, Month, Time of Day and Year Comprehension Ability: No Impairment Hallucination Type: None Delusion Description: Not Present Thought Process: Appropriate Vitals/I&O/Wt Last Vital Signs Temp 98.4 F 04/11/20 14:00 Pulse 70 04/11/20 14:00 Resp 18 04/11/20 14:00 BP 114/72 04/11/20 14:00 Pulse Ox 98 04/11/20 14:00 Weight last 48 hrs Weight 208 lb 8 oz Data NPU : 04/03/20 21:43 04/03/20 21:43 Involuntary Hold Information 96 Hour Hold: 96 Hour Involuntary Admission: Yes 96 Hour Hold Ending Date: 04/09/20 96 Hour Hold Ending Time: 12:01 Attestations NPU Medical Necessity Statement*: The patient will need 3 or 4 nights additional hospital stay Time Spent in Patient Care: Greater than 35 minutes (>than 50% of time spent in counselling and/or direct pt care on unit) . Review of prior records and pharmacotherapy. Patient education on the latter as well as her ability to withstand family pressure. 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
[2020-04-11] MEDS: trazodone 50 mg Tablet PO (20:43)
[2020-04-11] MEDS: gabapentin 300 mg Capsule 600 MG PO (20:43)
[2020-04-11] MEDS: OLANZapine 5 mg ODT PO (20:43)
[2020-04-11 22:00] VITALS: BP 124/81; PULSE 105; RESP 18; TEMP 36.7; O2SAT 95
[2020-04-12 06:00] VITALS: BP 106/66; PULSE 61; RESP 17; TEMP 36.9; O2SAT 100
[2020-04-12] MEDS: sulfacetamide 10% Op Soln 15 mL Btl 1 DROP EYE-BOTH (08:21)
[2020-04-12] MEDS: buPROPion SR (12 HR) 100 mg Tablet PO ×2 (08:22→15:41)
[2020-04-12] MEDS: chlorPROMazine 50 mg Tablet PO (08:22)
[2020-04-12] MEDS: ibuprofen 200 mg Tablet 400 MG PO (08:22)
--- NOTE | 2020-04-12 08:23 | PC.NURSE ---
Addendum entered by Clare Smalls LPN 04/12/20 10:46: prn med effective no further c/o agitation Original Note: prn thorazine 50 MG GIVEN PO PER PT C/O STATED AGITATION.
[2020-04-12 14:00] VITALS: BP 116/75; PULSE 90; RESP 16; TEMP 36.8; O2SAT 96
--- NOTE | 2020-04-12 15:26 | P.DS_ITS ---
Diagnoses at Discharge Discharge Diagnosis (1) Thoughts of self harm: Status: Resolved (2) Depression: Status: Chronic Qualifiers: Depression Type: major depressive disorder Major depression recurrence: recurrent Active/Remission status: currently active Major depression episode severity: severe Psychotic features: with psychotic features Qualified Code(s): F33.3 - Major depressive disorder, recurrent, severe with psychotic symptoms (3) Dysthymic disorder: Status: Chronic (4) Deficient knowledge of cognitive impairment: Status: Chronic Reason for Visit Reason for Visit: SI Hospital Course Hospital Course The patient meets criteria for dysthymic disorder. Her current status is 1 of an elevation of her persistent sadness and irritability. She meets criteria for major depression?recurrent, mild severity. She does not appear to be an imminent risk to self or others and her 96-hour involuntary commitment will be Patient discontinued. Plan at this time is to initiate Effexor 37.5 mg in the morning and Atarax 25 mg every 6 hours as needed agitation or anxiety. Hospital day #3: Patient continues to divest herself of responsibility with regarding her capacity for managing stress. She was able to identify that when she is anxious, it helps her feel better when she washes dishes. However she cannot always do this and could not come up with any other sublimating activities. She reported feelings of paranoia and a feeling of spirits in the room. We discussed her history of adverse response to risperidone resulting in akathisia. Plan: Day #2 on Effexor XR 37.5 mg daily. Will start chlorpromazine 25 mg at bedtime and then as needed paranoia/anxiety during the day. Hospital day #4: While the patient complains of being depressed and having paranoia, she is observed interacting freely and without difficulty with staff. She is participating actively and enthusiastically and group psychotherapy. She has an outpatient appointment tomorrow afternoon. Plan increase Effexor to 75 mg daily and will hold at that level as it will take several weeks for her to show significant benefit from this medication. Chlorpromazine will be increased to 50 mg at bedtime and 25 mg as needed paranoia during the day. Hospital day #5: Patient continues to be driven by dependency needs and multiple somatic complaints. She is resistant to education regarding appropriate expectations for medication and control of anxiety. She does appear to be laboring under significant situational anxiety and adjustments in medications may provide her better opportunity to tolerate this. Plan at this time is to change her chlorpromazine at bedtime to gabapentin 600 mg at bedtime. Chlorpromazine as needed anxiety/paranoia during the day is increased to 50 mg up to 4 times daily. She again complains of hip pain which would more likely respond to ibuprofen than acetaminophen and that change was made. Hospital day #6: In spite of having a as needed medication for anxiety and voices, she has not received any of it because she is not complaining of her to anybody else but this physician. It is also possible that the initiation of the Effexor may have produced the ringing in her ears. Options were discussed. [place] n: Utilize as needed antipsychotic for auditory hallucinations and replace Effexor with Wellbutrin SR 100 mg daily. Hospital day #7: Patient is no longer exhibiting suicidal ideation. She tolerated her first day of Wellbutrin yesterday. She is sleeping well. She complains of auditory hallucinations but does not ask for her as needed medication unless prompted. She has a variety of minor somatic complaints which she feels require her to be in the hospital. Plan: If she tolerates medication again today and she does not request as needed medication for auditory hallucinations, it appears that she will have reached maximum hospital benefit. Hospital day #8: The patient is experiencing pressure from her family patient education is given regarding boundaries and her right be taken care of rather than meeting the family's need to be taken care of. We review her pharmacotherapy and formulate a plan together to improve it. The patient has decided she is ready. We will set up her discharge meds through [facility] pharmacy; she has not the wherewithal to cover the co-pay elsewhere. Involuntary Hold Information 96 Hour Hold: 96 Hour Involuntary Admission: Yes 96 Hour Hold Ending Date: 04/09/20 96 Hour Hold Ending Time: 12:01 Mental Status Exam MSE Comments: The patient is alert and interpersonally engaged. Her eye contact is fair. Appearance: hygiene is fair; no gross neurological deficits, gait is unremarkable; AIMS=0. Speech is of normal rate and volume, without dysarthria, aprosody or pressure. Thought processes are linear and goal-directed, without racing, blocking or looseness of association. Judgment is improved. She may soon be able to take care of herself. There is no indication of guarding or paranoia. There is no attention to internal stimuli. Auditory and visual hallucinations are denied. Insight is also improving. Problem solving skills are adequate for safety. The patient is oriented to person, place time and situation. No deficits noted in immediate, intermediate, or remote memory. Verbalizations are coherent. Fund of knowledge is poor with a noteworthy deficit and comprehension of mental health concepts which she freely verbalizes. Affect is euthymic with a self-reported depressed mood. The patient denies suicidal or homicidal ideation, plan or intent. Affective range is good. Perception is impaired primarily through cognitive deficit and lack of understanding of appropriate expectations of medications; reality testing challenged. Patient Appearance: Appropriate Level of Consciousness: Awake, Alert, Appropriate and Follows Commands. Patient Cognition Impaired: No Ability to Follow Directions: Good Patient Orientation (long list): Person, Place, Time, Name, Age, Birthday, Day of Month, Day of Week, Month, Time of Day and Year Comprehension Ability: No Impairment Hallucination Type: None Delusion Description: Not Present Thought Process: Appropriate Discharge Data Vitals: Last Vital Signs Temp 98.2 F 04/12/20 14:00 Pulse 90 04/12/20 14:00 Resp 16 04/12/20 14:00 BP 116/75 04/12/20 14:00 Pulse Ox 96 04/12/20 14:00 Discharge Plan Discharge Patient Disposition: Home, Self-Care Condition: Stable Prescriptions: New bupropion HCl 100 mg Tablet Sustained-Release 12 Hr 100 mg PO BID@08,16 30 Days Qty: 60 RF: 1 sulfacetamide sodium 10 % Drops 1 drp eye-both QID 30 Days Qty: 15 RF: 1 gabapentin 300 mg Capsule 600 mg PO BEDTIME 30 Days Qty: 60 RF: 1 chlorpromazine 50 mg Tablet 50 mg PO Q6H PRN (Reason: Agitation) 30 Days Qty: 30 RF: 0 No Action No Known Home Medications RF: 0 Discharge Orders: Discharge Order (Routine); Ordered 04/12/20 Ordered By: Gilmar Schafer Referrals: Milka Naranjo [Staff Physician] - 04/12/20 4:00 pm (NPU follow up) Avril Cloud MD [Primary Care Provider] - Discharge Diet: Usual diet Discharge Activity: Resume usual activity Activity Restrictions/Additional Instructions: If you have any questions about resources for provider and /or transportation benefits, you may contact your dependency case manager at [facility]. [place] [phone] Discharge Attestations NPU Time Spent in Discharge Care*: greater than 30 min Specific Discharge Activities: Specific discharge activities: educating patient, discussing with pcp/other providers, discussing with trimming caser/social workers/dc planners, documenting/other paperwork and evaluating patient/reviewing data Coding Level of Care Code Acute Rn Admissions for [facility] Fwd Diagnoses Thoughts of self harm R45.89 Depression F33.3 Depression Type: major depressive disorder Major depression recurrence: recurrent Active/Remission status: currently active Major depression episode severity: severe Psychotic features: with psychotic features Dysthymic disorder F34.1 Deficient knowledge of cognitive impairment
[2020-04-12 15:30] VITALS: BP 116/75; PULSE 90; RESP 16; TEMP 36.8; O2SAT 96
== END 2020-04-12 17:25 | disposition home or self-care (01) | DRG 885 ==
LOC: ER 22:19 → NP 22:46
PROVIDERS: Emergency Medicine; Admitting Provider Psychiatry & Neurology Psychiatry; PCP Family Medicine; Visit Provider Psychiatry & Neurology Psychiatry
DX: F33.3 Major depressive disorder, recurrent, severe with psychotic symptoms (principal); R45.851 Suicidal ideations; F34.1 Dysthymic disorder; Z87.891 Personal history of nicotine dependence; K21.9 Gastro-esophageal reflux disease without esophagitis
CPT/HCPCS: 12345; 80053; 80156; 80164; 80178; 80185; 80306; 80307; 81001; 83735; 84443; 84703; 85025; 99284; J3490; Q0161; Q0162

== ENCOUNTER 2020-04-03 21:24 | Emergency (ER) | payer MEDICAID, SELFPAY | END 2020-04-03 23:52 | disposition admitted as inpatient to this hospital (09) | LOC: ER 06-01 10:29 | PROVIDERS: Emergency Provider Emergency Medicine; PCP Family Medicine | DX: F29 Unspecified psychosis not due to a substance or known physiological condition (principal); R45.851 Suicidal ideations; Z87.891 Personal history of nicotine dependence | CPT/HCPCS: 12345; 85025; 99284 ==

== ENCOUNTER → 2020-07-20 13:26 | Outpatient (BNVA) | payer MEDICAID, SELFPAY | PROVIDERS: PCP Family Medicine; Visit Provider Counselor Professional | DX: F41.1 Generalized anxiety disorder (principal); F33.2 Major depressive disorder, recurrent severe without psychotic features | CPT/HCPCS: 90832 ==

== ENCOUNTER → 2020-08-03 11:18 | Outpatient (BNVA) | payer MEDICAID, SELFPAY | PROVIDERS: PCP Family Medicine; Visit Provider Family Medicine | DX: F33.3 Major depressive disorder, recurrent, severe with psychotic symptoms (principal); L01.00 Impetigo, unspecified; J06.9 Acute upper respiratory infection, unspecified; J30.2 Other seasonal allergic rhinitis; Z11.59 Encounter for screening for other viral diseases; J30.1 Allergic rhinitis due to pollen | CPT/HCPCS: 87635 ==

== ENCOUNTER → 2020-08-04 13:08 | Outpatient (BNVA) | payer MEDICAID, SELFPAY | PROVIDERS: PCP Family Medicine; Visit Provider Counselor Professional | DX: F41.1 Generalized anxiety disorder (principal); F33.3 Major depressive disorder, recurrent, severe with psychotic symptoms | CPT/HCPCS: 90834 ==

== ENCOUNTER → 2020-08-18 14:09 | Outpatient (BNVA) | payer MEDICAID, SELFPAY | PROVIDERS: PCP Family Medicine; Visit Provider Counselor Professional | DX: F41.1 Generalized anxiety disorder (principal); F33.3 Major depressive disorder, recurrent, severe with psychotic symptoms | CPT/HCPCS: 90832 ==

== ENCOUNTER → 2020-09-01 13:47 | Outpatient (BNVA) | payer MEDICAID, SELFPAY | PROVIDERS: PCP Family Medicine; Visit Provider Counselor Professional | DX: F41.1 Generalized anxiety disorder (principal); F33.2 Major depressive disorder, recurrent severe without psychotic features | CPT/HCPCS: 90832 ==

== ENCOUNTER → 2020-09-13 13:38 | Outpatient (BNVA) | payer MEDICAID, SELFPAY | PROVIDERS: PCP Family Medicine; Visit Provider Family Medicine | DX: Z32.00 Encounter for pregnancy test, result unknown (principal); F33.3 Major depressive disorder, recurrent, severe with psychotic symptoms; R42 Dizziness and giddiness | CPT/HCPCS: 81025 ==

== ENCOUNTER 2021-04-26 17:54 | Inpatient (IN) | payer MEDICAID, SELFPAY ==
[2021-04-26 18:01] VITALS: BMI 33.6
[2021-04-26 18:03] VITALS: BP 131/82; PULSE 68; RESP 18; TEMP 36.2; O2SAT 98
[2021-04-26 20:32] VITALS: BP 109/74; PULSE 84; RESP 15; TEMP 36.1; O2SAT 99
--- NOTE | 2021-04-26 20:54 | PC.NURSE ---
Spoke with Dr. Cloud about order for OB/ YARD GOODS SALESPERSON consult. Order placed for extrusion manager OB doctor ( Dr. Borrego ). Dr. Cloud notified to give extrusion manager FILLER BLOCK INSERTER REMOVER a call.
[2021-04-26] MEDS: gabapentin 300 mg Capsule PO (21:02)
[2021-04-26] MEDS: sulfacetamide 10% Op Soln 15 mL Btl 1 DROP EYE-BOTH (23:11)
--- NOTE | 2021-04-27 02:27 | PC.NURSE ---
OB nurse was down to assess patient. She said if we patient needs anything ( OB ) schaefer, to call.
[2021-04-27] MEDS: ibuprofen 800 mg tablet PO ×2 (03:35→10:24)
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
[2021-04-27 06:00] VITALS: BP 129/82; PULSE 83; RESP 14; TEMP 36.7; O2SAT 95
[2021-04-27] MEDS: buPROPion XL (24 HR) 150 mg Tablet PO (06:40)
[2021-04-27] MEDS: sulfacetamide 10% Op Soln 15 mL Btl 1 DROP EYE-BOTH ×4 (09:07→20:33)
[2021-04-27] MEDS: fluoxetine 20 mg Capsule PO (09:07)
[2021-04-27] MEDS: loratadine 10 mg Tablet PO (09:07)
--- NOTE | 2021-04-27 10:26 | PC.NURSE ---
prn ` 1024 administered motrin 800mg for pain with . will continue to monitor. was seen earlier this shift by an OB nurse to check out the jose.
--- NOTE | 2021-04-27 10:58 | PM.CONSULT ---
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 She was admitted to the Psychiatric unit for 96 hour hold after she was talking about harming herself and her children. Review of Systems General: Reports: 10 or more systems reviewed and unremarkable except in HPI and below Meds/Allergies Home Medications and Allergies Home Medications Medication Instructions Recorded Confirmed Last Taken Type sulfacetamide sodium 1 drp EYE-BOTH QID 30 Days #15 ml 04/12/20 04/26/21 Unknown Rx bupropion HCl 150 mg 24 hr tablet, 150 mg PO QAM #30 tab 09/27/20 04/26/21 Unknown Rx extended release fluoxetine 20 mg capsule 20 mg PO DAILY #30 cap 09/27/20 04/26/21 Unknown Rx chlorpromazine 50 mg PO TID PRN 04/26/21 04/26/21 Unknown History gabapentin 300 mg PO BEDTIME 04/26/21 04/26/21 Unknown History loratadine 10 mg PO DAILY 04/26/21 04/26/21 Unknown History Allergies Allergy/AdvReac Type Severity Reaction Status Date / Time amoxicillin Allergy Severe causes Verified 09/13/20 13:19 really bad migraines clindamycin Allergy ALGY-Swell Verified 09/13/20 13:19 Lip/Tongue/Throat Current Medications Current Medications Generic Name Dose Route Start Last Admin Trade Name Freq PRN Reason Stop Dose Admin Bupropion HCl 150 mg 04/27/21 06:00 04/27/21 06:40 Bupropion Xl (24 Hr) 150 Mg Tablet PO 150 mg QAM RADHA Administration Fluoxetine HCl 20 mg 04/27/21 09:00 04/27/21 09:07 Fluoxetine 20 Mg Capsule PO 20 mg DAILY RADHA Administration Gabapentin 300 mg 04/26/21 21:00 04/26/21 21:02 Gabapentin 300 Mg Capsule PO 300 mg BEDTIME RADHA Administration Ibuprofen 800 mg 04/26/21 19:46 04/27/21 10:24 Ibuprofen 800 Mg Tablet PO 800 mg Q8H PRN Administration PAIN Loratadine 10 mg 04/27/21 09:00 04/27/21 09:07 Loratadine 10 Mg Tablet PO 10 mg DAILY RADHA Administration Sulfacetamide Sodium 1 drop 04/26/21 21:00 04/27/21 09:07 Sulfacetamide 10% Op Soln 15 Ml Btl EYE-BOTH 1 drop QID RADHA Administration PFSH Acute PFSH: Medical History Acute bacterial conjunctivitis of both eyes Chronic, recurrent infections. Auditory hallucinations Depression Generalized anxiety disorder GERD (gastroesophageal reflux disease) Hip pain Homicidal thoughts Hx LEEP (loop electrosurgical excision procedure), cervix, Intermittent explosive disorder Seasonal allergic rhinitis Staph skin infection Surgical History Hx of dilation and curettage Family History Father Melanoma Social History Smoking and tobacco status: former smoker Quit status (tobacco): has quit using tobacco Year quit tobacco: 2019 Former quit date comment: 10/30/2019 Second hand smoke exposure: Yes Smoking risk assessment/counseling performed?: No Alcohol intake: never Desire information about alcohol rehabilitation?: No Counseling given: No Desire information about substance/drug rehabilitation?: No Counseling given: No Lives independently: No Household members: spouse and family Housing: House Marital status: Number of children: 1 service: No Current gender identity: Female Female Reproductive History: Date of last menstrual period: 01/22/20 Vitals/I&O/Wt Last Vital Signs Temp 98.0 F 04/27/21 06:00 Pulse 83 04/27/21 06:00 Resp 14 04/27/21 06:00 BP 129/82 04/27/21 06:00 Pulse Ox 95 04/27/21 06:00 Weight last 48 hrs Weight 196 lb Physical Exam Narrative: EXAM NARRATIVE: The patient agreed to speak to me today. She is by the phone, waiting for a call from her Grandma in regards to a place to go when she is released. She seems sad. She states that she is having some pain. She has only been taking ibuprofen. I asked if she has any problems with narcotic substance abuse and she stated that she did not. That's not why I'm here. I explained that I wanted to make sure that she didn't have an issue before I prescribed them. I asked about an abdominal binder. She thought that it would help. Const: COMMON NORMALS: no acute distress, average body habitus, patient oriented x3, no limitations, healthy appearing, alert and well nourished GENERAL APPEARANCE: cooperative and comfortable ORIENTATION/CONSCIOUSNESS: Yes awake, Yes oriented to person, Yes oriented to place and Yes oriented to time GI: COMMON NORMALS: Soft to palpation and non-tender PALPATION: Yes Soft to palpation Extremity: COMMON NORMALS: no clubbing, cyanosis or edema and no calf tenderness Neuro: COMMON NORMALS: patient oriented x3 SENSORIUM/ORIENTATION: Yes alert, Yes oriented to person, Yes oriented to place and Yes oriented to time Skin: WOUNDS: Yes surgical site (clean/dry/intact) A&P Assessment and plan (1) state: Add norco for pain control abdominal binder for incision Patient would be discharged home today from OB standpoint. Please feel free to call with any questions. Status: Acute Coding Level of Care Code Acute Dish Up Person for Chg Fwd Diagnoses state Z39.2
[2021-04-27] MEDS: HYDROcodone-acetaminophen 5-325 mg Tablet 1 TAB PO ×3 (12:49→21:53)
--- NOTE | 2021-04-27 13:08 | PC.NURSE ---
Addendum entered by Gypsy Cortez LPN 04/27/21 15:55: 1325 pt is laying down in bed asleep at this time, will continue to monitor pt until end of shift. Original Note: prn 1249 administered [place] 5-325mg for pt c/o pain 06/07. Will continue to monitor.
[2021-04-27 14:00] VITALS: BP 114/76; PULSE 86; RESP 18; TEMP 36.9; O2SAT 95
--- NOTE | 2021-04-27 17:58 | PC.NURSE ---
prn 1744 administered [place] 5-325mg for severe pain from a 1 day ago. will continue to monitor pt.
[2021-04-27] MEDS: gabapentin 300 mg Capsule PO (20:33)
[2021-04-27 20:55] VITALS: BP 115/82; PULSE 80; RESP 16; TEMP 36.6; O2SAT 95
[2021-04-28] MEDS: HYDROcodone-acetaminophen 5-325 mg Tablet 1 TAB PO ×5 (02:21→22:09)
[2021-04-28] MEDS: hyDROXYzine 25 mg Capsule 50 MG PO ×2 (02:22→22:12)
--- NOTE | 2021-04-28 02:26 | PC.NURSE ---
Given Hydrocodone 5 mg po for incisional pain and Vistaril 50 mg po for anxiety symptoms.
[2021-04-28 06:00] VITALS: BP 106/74; PULSE 86; RESP 14; TEMP 37.2; O2SAT 95
[2021-04-28] MEDS: buPROPion XL (24 HR) 150 mg Tablet PO (06:26)
[2021-04-28] MEDS: loratadine 10 mg Tablet PO (08:17)
[2021-04-28] MEDS: fluoxetine 20 mg Capsule PO (08:17)
[2021-04-28] MEDS: sulfacetamide 10% Op Soln 15 mL Btl 1 DROP EYE-BOTH ×4 (08:21→20:12)
--- NOTE | 2021-04-28 12:36 | P.PN_ITS ---
Subjective NPU Subjective: Interval history: Patient states that she experiences some belly pain but improving with pain medication Denies any interval suicidal ideation or thoughts about self-harm Reports occasional low mood given multiple ongoing life stressors but states that she feels like she is improving Denies any interval panic symptoms but reports stress related anxiety symptoms Reports being compliant with her medication and denies any medication side effects States that she has a plan to stay with her sister and is trying to coordinate to get her belongings Mental Status Exam MSE Comments: Appears older than stated age, walking with a pillow over her belly with antalgic but slow steady gait, good eye contact Psychomotor activity is neither increased nor decreased, no agitation Speech is somewhat low volume, slow, fair articulation, not pressured I feel okay, constricted affect, not labile Alert, oriented to person, place, time, situation Memory and concentration appear to be intact per interview Thought process, linear, no flight of ideas, no looseness of associations Thought content, no delusions, no hallucinations, no suicidal or homicidal ideation Insight and judgment appear to be intact Vitals/I&O/Wt Last Vital Signs Temp 98.9 F 04/28/21 06:00 Pulse 86 04/28/21 06:00 Resp 14 04/28/21 06:00 BP 106/74 04/28/21 06:00 Pulse Ox 95 04/28/21 06:00 04/27/21 04/28/21 04/28/21 22:59 06:59 14:59 Intake Total 360 / 360 Balance 360 / 360 Weight last 48 hrs Weight 88.904 kg A&P Assessment and plan (1) Suicidal ideation: Status: Acute (2) Depression: Status: Chronic Qualifiers: Depression Type: major depressive disorder Major depression recurrence: recurrent Active/Remission status: currently active Major depression episode severity: severe Psychotic features: with psychotic features Qualified Code(s): F33.3 - Major depressive disorder, recurrent, severe with psychotic symptoms (3) Borderline intellectual functioning: Status: Acute Additional A&P Information patient with borderline intellectual functioning with reported worsening depressive symptoms in the context of multiple life stressors with recent suicidal ideation currently denying any suicidal ideation or thoughts about self-harm. 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
--- NOTE | 2021-04-28 13:50 | PC.NURSE ---
prn 1235 administered [place] 5-325mg for pt c/o pain 8/10 on pain scale. Will monitor pt until end of shift.
[2021-04-28 14:00] VITALS: BP 127/82; PULSE 72; RESP 16; TEMP 36.6; O2SAT 97
--- NOTE | 2021-04-28 19:02 | PC.NURSE ---
prn 1742 Administered [place] 5-325mg pt c/o pain from 2days . Will continue to monitor pt until end of shift.
[2021-04-28] MEDS: gabapentin 300 mg Capsule PO (20:12)
[2021-04-28 22:00] VITALS: BP 121/82; PULSE 73; RESP 16; TEMP 36.7; O2SAT 95
--- NOTE | 2021-04-28 23:13 | PC.NURSE ---
The patient requested Vistaril for anxiety symptoms related to her incisional pain. Vistaril 50 mg po given at 2209. Currently appears to be sleeping.
--- NOTE | 2021-04-29 04:39 | PC.NURSE ---
PM ASSESSMENT PT DENIES SI/HI, DENIES AH/VH,V/S ARE WNL, PT STATES THAT SHE HAS SOME PAIN FROM HER RECENT DELIVERY VIA . PT STATES, I WANNA GO HOME AND HOLD MY BABY. PT REPORTS FEELING LESS DEPRESSED BUT SAYS SHE IS MAD AT HERSELF BECAUSE SHE NEEDS TO BE AT HOME AND HER STUPID BRAIN, WONT LET HER PT STAYED IN THE DAYROOM MOST OF THE EVENING WATCHING, TWILIGHT AND SAID SHE, WISHED SOMEONE LOVED HER LIKE THAT. SHE TEARED UP FOR A MOMENT, THEN SMILED AT THE NURSE. PT RECEIVED VISTERIL FOR HER ANXIETY FROM MED NURSE PRIOR TO GOING TO BED, SHE HAS SLEPT WELL. PT DID RECEIVE HER PAIN MEDICATION TO ENSURE SHE WAS COMFORTABLE.
[2021-04-29 06:00] VITALS: BP 129/85; PULSE 76; RESP 16; TEMP 36.5; O2SAT 94
[2021-04-29] MEDS: buPROPion XL (24 HR) 150 mg Tablet PO (06:29)
[2021-04-29] MEDS: HYDROcodone-acetaminophen 5-325 mg Tablet 1 TAB PO ×2 (08:00→12:05)
[2021-04-29] MEDS: loratadine 10 mg Tablet PO (08:00)
[2021-04-29] MEDS: fluoxetine 20 mg Capsule PO (08:01)
[2021-04-29] MEDS: sulfacetamide 10% Op Soln 15 mL Btl 1 DROP EYE-BOTH ×2 (09:34→12:54)
--- NOTE | 2021-04-29 10:35 | P.DS_ITS ---
Diagnoses at Discharge Discharge Diagnosis (1) Suicidal ideation: Status: Acute (2) Depression: Status: Chronic Qualifiers: Depression Type: major depressive disorder Major depression recurrence: recurrent Active/Remission status: currently active Major depression episode severity: severe Psychotic features: with psychotic features Qualified Code(s): F33.3 - Major depressive disorder, recurrent, severe with psychotic symptoms (3) Borderline intellectual functioning: Status: Acute Reason for Visit Reason for Visit: Suicidal thoughts Hospital Course Hospital Course 30-year-old female with history of depression although appears that her last contact with mental health during was soon after finding out that she was in August 2020 with report that she had stopped her medications at that time. Patient presented to the hospital as a transfer after delivery of her child by in which she had made a statement to someone that she was going to hurt herself and her children although on initial psychiatric evaluation, patient had retracted this statement reporting that she would never harm herself or her children. A report with follow-up with child services and her children was subsequently taken and put under state care. Patient was restarted on her previous medication of Wellbutrin 150 mg daily and fluoxetine 20 mg daily with no reports of any medication side effects. She did report some discomfort at the site of her incision and was evaluated and cleared by [employer] consult with recommendation to follow-up post discharge for post delivery care. Patient did not report any depressive symptoms throughout her ho spital stay and denied any psychotic symptoms, no auditory or visual destinations and no reports of any bizarre behavior. Patient did report having some stress related anxiety secondary to her current living situation and her desire to move away to stay with her sister but also had concerns about whether or not this showed that she had a desire to appropriately regain custody of her children by leaving her current living arrangement. Patient participate in unit milieu with no reports of any behavioral disturbances. She was not suicidal and did not endorse any psychiatric symptoms at the time of discharge and did not appear to pose an imminent threat of harm to self or others. Low to moderate risk given no current suicidal ideation and no demonstration of any bizarre behaviors or endorsement of any current psychiatric symptoms although lack of compliance with medication and medication management follow-up may elevate her risk. Risk mitigation included psychiatric hospitalization for observation for any return of any suicidal or homicidal ideation or behaviors, medication stabilization as well as coordination for safe discharge including mental health care follow-up. Patient was able to communicate her understanding of the need to be compliant with her medication and medication management follow-up as well as counseling targeting the development of more adaptive coping strategies in order to further mitigate her risk of harm to self and others. Additional safety measures include patient's children currently being under State care while patient establishes outpatient mental health care follow- up to include medication management and counseling. Involuntary Hold Information 96 Hour Hold: 96 Hour Involuntary Admission: Yes 96 Hour Hold Ending Date: 05/03/21 96 Hour Hold Ending Time: 17:50 Mental Status Exam MSE Comments: Sitting in the day room area watching TV, calm, cooperative, interactive, good eye contact, appropriately groomed and dressed Psychomotor activity is neither increased nor decreased, no agitation Speech is somewhat low volume, slow, fair articulation, not pressured I feel okay, full range of affect, not labile Alert, oriented to person, place, time, situation Memory and concentration appear to be intact per interview Thought process, linear, no flight of ideas, no looseness of associations Thought content, no delusions, no hallucinations, does not appear to be attending to any internal stimuli, no suicidal or homicidal ideation Insight and judgment appear to be intact given patient's ability to communicate her understanding of the events leading to her hospitalization as well as the safety precautions taken secondary to statements she had made after delivery of her child; patient also communicates her understanding of her diagnosis and ongoing need for psychiatric treatment to include compliance with her medication and follow-up. Discharge Data Vitals: Last Vital Signs Temp 97.7 F 04/29/21 06:00 Pulse 76 04/29/21 06:00 Resp 16 04/29/21 06:00 BP 129/85 04/29/21 06:00 Pulse Ox 94 04/29/21 06:00 Discharge Plan Discharge Patient Disposition: Home Condition: Stable Prescriptions: New bupropion HCl 150 mg Tablet Extended Release 24 Hr 150 mg PO QAM Qty: 30 RF: 0 Continued bupropion HCl [Wellbutrin XL] 150 mg tablet extended release 24 hr 150 mg PO QAM Qty: 30 RF: 1 loratadine 10 mg Tablet 10 mg PO DAILY RF: 0 chlorpromazine 50 mg Tablet 50 mg PO TID PRN (Reason: Agitation) RF: 0 sulfacetamide sodium 10 % Drops 1 drp eye-both QID 30 Days Qty: 15 RF: 1 fluoxetine [Prozac] 20 mg capsule 20 mg PO DAILY Qty: 30 RF: 1 gabapentin 300 mg Capsule 300 mg PO BEDTIME Qty: 30 RF: 0 Discharge Orders: Discharge Order (Routine); Ordered 04/29/21 Ordered By: Patti Yeh Referrals: [facility] [Other] (Will need to re-establish with [facility] by walking in Sunday though Sunday between 7:30am and 3pm.) Jerson Beal MD [Referring] - (Come in to the walk-in clinic of [facility] on either May 05 or to have jose removes. An appointment is not necessary.) Discharge Diet: Regular Discharge Activity: Resume usual activity Patient Instructions: Opioid Safety Discharge Attestations NPU Time Spent in Discharge Care*: greater than 30 min Status at Discharge: Cognitive status at discharge: cognitively intact , Behavioral status at discharge: cooperative , Functional status at discharge: independent ambulation Overall status at discharge: patient is back to baseline Coding Level of Care Code Acute Chg [facility] note Diagnoses Suicidal ideation R45.851 Depression F33.3 Depression Type: major depressive disorder Major depression recurrence: recurrent Active/Remission status: currently active Major depression episode severity: severe Psychotic features: with psychotic features Borderline intellectual functioning R41.83
[2021-04-29 10:59] VITALS: BP 129/85; PULSE 76; RESP 16; TEMP 36.5; O2SAT 94
== END 2021-04-29 13:11 | disposition home or self-care (01) | DRG 776 ==
PROVIDERS: Admitting Provider Psychiatry & Neurology Psychiatry; PCP Family Medicine; Visit Provider Psychiatry & Neurology Psychiatry
DX: O99.345 Other mental disorders complicating the puerperium (principal); F33.3 Major depressive disorder, recurrent, severe with psychotic symptoms; R45.851 Suicidal ideations; F34.1 Dysthymic disorder; F41.1 Generalized anxiety disorder; F60.89 Other specific personality disorders; O99.893 Other specified diseases and conditions complicating puerperium; R41.83 Borderline intellectual functioning; H10.33 Unspecified acute conjunctivitis, bilateral; J30.2 Other seasonal allergic rhinitis; M25.559 Pain in unspecified hip; O99.63 Diseases of the digestive system complicating the puerperium; K21.9 Gastro-esophageal reflux disease without esophagitis; Z81.8 Family history of other mental and behavioral disorders; Z87.891 Personal history of nicotine dependence; Z62.810 Personal history of physical and sexual abuse in childhood